=== PATIENT | male | born 1960 | race Caucasian/White ===

== ENCOUNTER → 2017-06-30 | Outpatient (CLI) | payer BC, MEDICARE ==
[2015-02-01 00:16] VITALS: BP 153/91
[~2017-06-30] MED LIST: CETI10TA22 PO; IBUP600T16 PO; LEVO75TA5 PO; METF500T4 PO; ONDA4TAB12 PO; ONDA4TAB7 PO; OXYC-328 PO
[2017-06-30 12:21] LABS: BASO # 0.1 x10^3/uL (0.0-0.2); BASO % 1 % (0-3); EOS # 0.1 x10^3/uL (0.0-0.7); EOS % 1 % (0-3); HEMATOCRIT 38.5 % (39.0-53.0); HEMOGLOBIN 12.8 g/dL (13.0-17.5); LYMPH # 1.1 x10^3/uL (1.0-4.8); LYMPH % 19 % (24-48); MEAN CORPUSCULAR HEMOGLOBIN 29 pg (25-35); MEAN CORPUSCULAR HGB CONC 33 g/dL (31-37); MEAN CORPUSCULAR VOLUME 88 fL (79-100); MONO # 0.3 x10^3/uL (0.0-1.1); MONO % 6 % (0-9); NEUT # 4.4 x10^3uL (1.8-7.7); NEUT % 73 % (31-73); PLATELET COUNT 174 x10^3/uL (140-400); RED CELL DISTRIBUTION WIDTH 14.5 % (11.5-14.5)
[2017-06-30 12:30] LABS: AMORPHOUS SEDIMENT,UR PRESENT /HPF; BACTERIA,URINE FEW /HPF (0-FEW); BILIRUBIN,URINE NEG (NEG); CLARITY,URINE HAZY; COLOR,URINE STRAW; GLUCOSE,URINE NEG (NEG); NITRITE,URINE NEG (NEG); RBC,URINE 0 /HPF (0-2); SQUAMOUS EPITHELIAL CELL,UR FEW /LPF; UROBILINOGEN,URINE 0.2 mg/dL (0.2 mg/dL); WBC,URINE OCC /HPF (0-4)
== END | disposition home or self-care (01) ==
LOC: LAB 10:55
PROVIDERS: ATTEND Anesthesiology Pain Medicine
DX: Z01.818 Encounter for other preprocedural examination (principal)
CPT/HCPCS: 36415; 81001; 85025; 87641

== ENCOUNTER → 2017-08-09 | Day surgery (SDC) | payer BC, MEDICARE ==
[2015-02-01 00:16] VITALS: BP 153/91
[~2017-08-09] MED LIST changes: +BACITRACIN 50,000 UNIT VIAL. ONE; +BUPIVACAINE MPF 0.5% 30 ML VIAL. ONE; +IOHEXOL 300 MG/ML 50 ML VIAL. ONE; +IV RINGERS SOLUTION,LACTATED 1,000 ML IV ONE; +LIDOCAINE 1% PF 30 ML VIAL. ONE; +LIDOCAINE 2% PF Vial for OR 5 ML VIAL. ONE; +MIDAZOLAM HCL PF 2 MG/2 ML VIAL. ONE; +PROPOFOL 20 ML IV ONE
[2017-08-09 11:17] LABS: BACTERIA,URINE 0 /HPF (0-FEW); BILIRUBIN,URINE NEG (NEG); CLARITY,URINE CLEAR; COLOR,URINE YELLOW; GLUCOSE,URINE NEG (NEG); NITRITE,URINE NEG (NEG); RBC,URINE 0 /HPF (0-2); UROBILINOGEN,URINE 0.2 mg/dL (0.2 mg/dL); WBC,URINE 0 /HPF (0-4)
== END | disposition home or self-care (01) ==
LOC: SURG 09:57
PROVIDERS: ATTEND Anesthesiology Pain Medicine
DX: M54.16 Radiculopathy, lumbar region (principal); Z88.6 Allergy status to analgesic agent; Z88.8 Allergy status to other drugs, medicaments and biological substances
CPT/HCPCS: 63650; 81001; 82947; J0690; J2001; J2250; J2704; J3010; J3490; J7120; Q9967

== ENCOUNTER → 2017-10-04 | Day surgery (SDC) | payer BC, MEDICARE ==
[2015-02-01 00:16] VITALS: BP 153/91
[2017-10-03 13:00] LABS: BASO # 0.1 x10^3/uL (0.0-0.2); BASO % 1 % (0-3); EOS # 0.1 x10^3/uL (0.0-0.7); EOS % 1 % (0-3); HEMATOCRIT 39.8 % (39.0-53.0); HEMOGLOBIN 13.6 g/dL (13.0-17.5); LYMPH # 1.1 x10^3/uL (1.0-4.8); LYMPH % 17 % (24-48); MEAN CORPUSCULAR HEMOGLOBIN 30 pg (25-35); MEAN CORPUSCULAR HGB CONC 34 g/dL (31-37); MEAN CORPUSCULAR VOLUME 88 fL (79-100); MONO # 0.4 x10^3/uL (0.0-1.1); MONO % 7 % (0-9); NEUT # 4.7 x10^3uL (1.8-7.7); NEUT % 74 % (31-73); PLATELET COUNT 230 x10^3/uL (140-400); RED BLOOD COUNT 4.51 x10^6/uL (4.30-5.70); RED CELL DISTRIBUTION WIDTH 13.6 % (11.5-14.5); WHITE BLOOD COUNT 6.4 x10^3/uL (4.0-11.0)
[2017-10-03 13:12] LABS: BACTERIA,URINE 0 /HPF (0-FEW); BILIRUBIN,URINE NEG (NEG); CLARITY,URINE CLEAR; COLOR,URINE YELLOW; GLUCOSE,URINE NEG (NEG); NITRITE,URINE NEG (NEG); RBC,URINE 0 /HPF (0-2); UROBILINOGEN,URINE 0.2 mg/dL (0.2 mg/dL); WBC,URINE RARE /HPF (0-4)
[~2017-10-04] MED LIST changes: -IOHEXOL 300 MG/ML 50 ML VIAL. ONE; -LIDOCAINE 2% PF Vial for OR 5 ML VIAL. ONE; -PROPOFOL 20 ML IV ONE; +fentaNYL PF 250 MCG/5 ML VIAL ONE
== END | disposition home or self-care (01) ==
LOC: SURG 13:23
PROVIDERS: ATTEND Anesthesiology Pain Medicine
DX: M96.1 Postlaminectomy syndrome, not elsewhere classified (principal); M54.16 Radiculopathy, lumbar region; E11.9 Type 2 diabetes mellitus without complications; E03.9 Hypothyroidism, unspecified; F41.9 Anxiety disorder, unspecified; F32.9 Major depressive disorder, single episode, unspecified; D64.9 Anemia, unspecified; Z87.442 Personal history of urinary calculi; Z87.440 Personal history of urinary (tract) infections; Z88.6 Allergy status to analgesic agent
CPT/HCPCS: 36415; 63685; 81001; 82947; 85025; 87641; J0690; J2001; J2250; J3010; J3490; J7120; L8686

== ENCOUNTER → 2017-10-18 | Outpatient (CLI) | payer BC, MEDICARE ==
[2015-02-01 00:16] VITALS: BP 153/91
[~2017-10-18] MED LIST changes: -BACITRACIN 50,000 UNIT VIAL. ONE; -BUPIVACAINE MPF 0.5% 30 ML VIAL. ONE; -IV RINGERS SOLUTION,LACTATED 1,000 ML IV ONE; -LIDOCAINE 1% PF 30 ML VIAL. ONE; -MIDAZOLAM HCL PF 2 MG/2 ML VIAL. ONE; -fentaNYL PF 250 MCG/5 ML VIAL ONE
== END | disposition home or self-care (01) ==
LOC: SURG 14:12
PROVIDERS: ATTEND Anesthesiology Pain Medicine
DX: Z48.02 Encounter for removal of sutures (principal); Z45.89 Encounter for adjustment and management of other implanted devices
CPT/HCPCS: 99214

== ENCOUNTER → 2018-09-26 | Outpatient (CLI) | payer BC, MEDICARE ==
[2015-02-01 00:16] VITALS: BP 153/91
[~2018-09-26] MED LIST changes: +METF500T16 PO; -METF500T4 PO; -OXYC-328 PO; +OXYC1TAB22 PO
--- NOTE | 2018-09-26 11:20 | RAD ---
Chest, 2 views, 09/26/2018: HISTORY: Cough for one week Comparison is made to a study from 12/06/2016. Spinal stimulator leads extend into the mid thoracic spinal canal. The heart size and pulmonary vascularity are normal. No pulmonary infiltrate is seen. There is no evidence of pleural fluid. Mild spurring is present in the spine. Widening of the left AC joint may be post traumatic or postsurgical. IMPRESSION: No acute cardiopulmonary abnormality is detected. Electronically signed by: Hardik Valdivia MD (09/26/2018 11:17 AM) [facility]
== END | disposition home or self-care (01) ==
LOC: PMG 10:33
PROVIDERS: ATTEND Physician Assistant Medical
DX: R05 Cough (principal); M46.04 Spinal enthesopathy, thoracic region
CPT/HCPCS: 71046

== ENCOUNTER → 2018-09-28 | Outpatient (CLI) | payer BC, MEDICARE ==
[2015-02-01 00:16] VITALS: BP 153/91
[~2018-09-28] MED LIST changes: +IOHEXOL 300 MG/ML 75 ML VIAL. IV ONE
[2018-09-28 15:12] LABS: CREATININE 1.4 mg/dL (0.7-1.3); GFR 52.4
--- NOTE | 2018-09-28 15:53 | RAD ---
CTA of the chest with contrast, 09/28/2018: HISTORY: Shortness of breath, previous pulmonary emboli Multidetector CT imaging was performed following an IV bolus injection of iodinated contrast material. Multiplanar reconstructions were produced including coronal MIP images. The central pulmonary arteries are well opacified and no filling defects are seen to suggest pulmonary emboli. The thoracic aorta is of normal caliber. Minimal coronary artery calcification is present. No mediastinal or hilar adenopathy is seen. There is minimal linear atelectasis or scarring laterally in the left base. There is minimal dependent atelectasis in the lungs. No pulmonary consolidation or mass is seen. There is a trace amount of bilateral pleural fluid. Spinal stimulator leads extend into the mid thoracic spinal canal. There are mild scattered degenerative changes in the spine. IMPRESSION: 1. No CT evidence of central pulmonary emboli. 2. Minimal coronary artery calcification. 3. Trace amount of bilateral pleural fluid. PQRS Compliance Statement: One or more of the following individualized dose reduction techniques were utilized for this examination: 1. Automated exposure control 2. Adjustment of the mA and/or kV according to patient size 3. Use of iterative reconstruction technique Electronically signed by: Hardik Valdivia MD (09/28/2018 3:49 PM) [facility]
== END | disposition home or self-care (01) ==
LOC: PMG 14:26
PROVIDERS: ATTEND Physician Assistant Medical
DX: I25.10 Atherosclerotic heart disease of native coronary artery without angina pectoris (principal); R05 Cough; Z86.711 Personal history of pulmonary embolism
CPT/HCPCS: 36415; 71275; 82565; Q9967

== ENCOUNTER → 2018-12-26 | Outpatient (CLI) | payer BC, MEDICARE ==
[2015-02-01 00:16] VITALS: BP 153/91
[~2018-12-26] MED LIST changes: -IOHEXOL 300 MG/ML 75 ML VIAL. IV ONE
--- NOTE | 2018-12-26 10:02 | RAD ---
EXAM: Neck sonogram. HISTORY: Palpable lump. TECHNIQUE: Sonographic imaging of the neck at the site of palpable concern was performed. COMPARISON: None. FINDINGS: There is no suspicious sonographic finding within the posterior midline neck at the site of concern. IMPRESSION: No sonographic correlate for a reported palpable abnormality within the midline posterior neck. Electronically signed by: Fabiola Lennon MD (12/26/2018 9:59 AM) [place] [id number]
== END | disposition home or self-care (01) ==
LOC: US 08:22
PROVIDERS: ATTEND Physician Assistant
DX: R22.1 Localized swelling, mass and lump, neck (principal)
CPT/HCPCS: 76536

== ENCOUNTER → 2019-02-21 | Outpatient (CLI) | payer BC, MEDICARE ==
[2015-02-01 00:16] VITALS: BP 153/91
--- NOTE | 2019-02-21 17:11 | RAD ---
Examination: THYROID ULTRASOUND History: THYROID NODULE ON EXAM Comparison/Correlation: CTA of the chest 09/28/2018 Findings: Thyroid ultrasound exam was performed. Right thyroid lobe measures 2.8 cm x 1.5 cm x 1.3 cm. Left thyroid lobe measures 3.1 cm x 1.3 cm x 1.2 cm. Thyroid isthmus measures up to 0.2 cm anteroposterior. There is no thyroid nodule or mass. Normal echotexture of the thyroid gland is present. Normal flow on color Doppler imaging is present. No suspicious findings in soft tissues immediately about the thyroid gland. Impression: Normal thyroid ultrasound exam. Electronically signed by: Ino Carlos MD (02/21/2019 5:08 PM) [facility]
== END | disposition home or self-care (01) ==
LOC: US 12:29
PROVIDERS: ATTEND Registered Nurse
DX: E04.1 Nontoxic single thyroid nodule (principal)
CPT/HCPCS: 76536

== ENCOUNTER → 2019-08-08 | Outpatient (CLI) | payer BC, MEDICARE ==
[2015-02-01 00:16] VITALS: BP 153/91
--- NOTE | 2019-08-08 12:45 | RAD ---
2 view right elbow study Clinical indications: Right elbow pain FINDINGS: No joint effusion is seen. No acute fracture or dislocation or lytic process is evident. No arthritic change is evident. IMPRESSION: No significant osseous abnormality. Electronically signed by: Luis A Guillen MD (08/08/2019 12:42 PM) [id number]
== END | disposition home or self-care (01) ==
LOC: RAD 10:48
DX: M25.521 Pain in right elbow (principal)
CPT/HCPCS: 73070

== ENCOUNTER → 2019-12-13 | Outpatient (CLI) | payer BC, MEDICARE ==
[2015-02-01 00:16] VITALS: BP 153/91
[~2019-12-13] MED LIST changes: -CETI10TA22 PO; +CETI10TA24 PO
--- NOTE | 2019-12-13 15:25 | RAD ---
EXAM: CT Abdomen and Pelvis without IV contrast INDICATION: Hematuria, flank pain and history of kidney stones TECHNIQUE: Multi-detector row CT images were acquired from the lung bases through the abdomen and pelvis without the use of IV contrast. Sagittal and coronal images were acquired from the transaxial data. All CT scans performed at this facility utilize dose optimization techniques as appropriate to the exam, including the following: Automated exposure control and adjustment of the mA and/or KV according to patient size (this includes techniques or standardized protocols for targeted exams where dose is indication/reason for exam). ORAL CONTRAST: None COMPARISON: None FINDINGS: The absence of IV contrast limits evaluation of soft tissue pathology. LOWER CHEST: Unremarkable LIVER: Unremarkable BILIARY SYSTEM: Gallbladder is surgically absent.. Bile ducts are not dilated. PANCREAS: Unremarkable SPLEEN: Unremarkable ADRENALS: Unremarkable KIDNEYS & URETERS: Superior pole 1.1 cm nonobstructing stone is present along with tiny, 1 to 2 mm punctate stones in the inferior pole right kidney. No stones in the ureters and no hydronephrosis or hydroureter. Minimal bilateral inferior pole perirenal stranding, nonspecific. No radiopaque stones in the left kidney or ureter. BLADDER: Partially distended. Otherwise unremarkable. REPRODUCTIVE ORGANS: Unremarkable GASTROINTESTINAL: The stomach, small bowel, and colon are within normal limits. The configuration of the proximal stomach is suggestive of possible prior fundoplication.. The appendix is normal. MESENTERY/PERITONEUM/RETROPERITONEUM: Unremarkable VASCULAR: Unremarkable LYMPH NODES: No adenopathy OSSEOUS & SOFT TISSUES: No aggressive appearing osseous lesions. Sclerotic focus in the right pubic symphysis and the left sacral alar suggestive of bone islands. Neurostimulator in the posterior lower thoracic spinal canal is present with electrodes entering from the left T12-L1 entry. IMPRESSION: Right nephrolithiasis without CT findings of urinary tract obstruction. Electronically signed by: Teri Sanchez MD (12/13/2019 3:22 PM) [id number]
== END | disposition home or self-care (01) ==
LOC: CT 14:56
PROVIDERS: ATTEND Registered Nurse
DX: N20.0 Calculus of kidney (principal); Z87.442 Personal history of urinary calculi
CPT/HCPCS: 74176

== ENCOUNTER 2020-04-12 20:37 | Emergency (ER) | payer MEDICARE, BC ==
[~2020-04-12] VITALS: Ht 162.6 cm; Wt 84.0 kg
--- NOTE | 2020-04-12 20:42 | PHYS DOC ---
Past History Past Medical History: Anxiety, Arthritis, Depression, Fibromyalgia, Gallstones, GERD, High Cholesterol, Hypothyroid, Kidney Stones, Other Past Surgical History: Appendectomy, Cholecystectomy, Tonsillectomy, Other Alcohol Use: None Drug Use: None General Adult HPI: HPI: ".. I got this kidney stone that is stuck.. It just the pain is so bad to night .. I can't stand it.. ".. " I to get a laser tx. here in next week with Dr. Thurman... ".. They been following it.... It just that I so miserable to night.. It is not my lst stone... I ve had at least 50 some stones..... and usually I dont have to go to the hospital... I am taking Flomax.. Zofran.. it just really hurting tonight... " " Usually if I get a shot of something.. I get over the times I get bad pain..." Patient is a 59 year old male who presents with above hx and complaints of Rt f;lank back which he describes as his renal colic from a stuck renal stone. The patient is seeing urology Dr Thurman. Patient is on Flomax and has been taking Tylenol and ibuprofen for pain. Patient also has been taking Zofran for nausea. Patient is taking Flomax twice a day. Patient denies any fever or chills. Patient denies any recent travel outside the [place] area. Patient denies any immunosuppression. Patient does have a past history of anxiety, GERD, reflux, Gertrudis esophagitis, slow gastric transit time, depression, elevated cholesterol, hypothyroidism and a lengthy history of childhood illnesses. Hx of appendectomy, cholecystectomy, back surgery, and nerve stimulator for chronic back pain. Pt. follows with [facility] for care. Patient states he is not on any antibiotics currently. Has planned laser tx. with stent by Dr. Thurman. Review of Systems: Review of Systems: Constitutional: Denies fever or chills Eyes: Denies change in visual acuity HENT: Denies nasal congestion or sore throat Respiratory: Denies cough or shortness of breath Cardiovascular: Denies chest pain or edema GI: Denies abdominal pain, , vomiting, bloody stools or diarrhea . Complaints of nausea : Denies dysuria . Complaints of hematuria Musculoskeletal: Complains of Rt. flank back pain . Hx of chronic back and joint pain Integument: Denies rash Neurologic: Denies headache, focal weakness or sensory changes Endocrine: Denies polyuria or polydipsia Lymphatic: Denies swollen glands Psychiatric: Denies depression or anxiety Heart Score: Risk Factors: Risk Factors: DM, Current or recent (<one month) smoker, HTN, HLP, family history of CAD, obesity. Risk Scores: Score 0 - 3: 2.5% MACE over next 6 weeks - Discharge Home Score 4 - 6: 20.3% MACE over next 6 weeks - Admit for Clinical Observation Score 7 - 10: 72.7% MACE over next 6 weeks - Early Invasive Strategies Family History: Family History: Noncontributory to presentation Current Medications: Current Meds: See nursing for home meds Allergies: Allergies: Allergies Coded Allergies Type Severity Reaction Last Updated Verified codeine Allergy Intermediate 02/01/15 No droperidol Adverse Reaction Intermediate 01/02/15 Yes morphine Adverse Reaction Intermediate 01/02/15 Yes Physical Exam: PE: Constitutional: in acute distress, non-toxic appearance. [] HENT: Normocephalic, atraumatic, bilateral external ears normal, oropharynx moist, no oral exudates, nose normal. [] Eyes: PERRLA, EOMI, conjunctiva normal, no discharge. Glasses Neck: Normal range of motion, no tenderness, supple, no stridor. [] Cardiovascular:Heart rate regular rhythm, no murmur [] Lungs & Thorax: Bilateral breath sounds equal at apexes with few scattered wheezes on auscultation [] Abdomen: Bowel sounds decreased, soft, Rt. flank tenderness, no masses, no pulsatile masses. [] Old surgery scars. Distended. Mild rebound to right flank. Skin: Warm, dry, no erythema, no rash. [] Back: No tenderness, Rt. CVA tenderness. [] Spinal stimulator on the left. Old scars. Extremities: No tenderness, no cyanosis, no clubbing, ROM intact, no edema. [] Old surgery scars. No psoas sign. Neurologic: Alert and oriented X 3, normal motor function, normal sensory function, no focal deficits noted. [] Psychologic: Affect anxious , judgement normal, mood normal. [] EKG: EKG: [] Radiology/Procedures: Radiology/Procedures: [][address] [id number] IMAGING REPORT Signed PATIENT: BASSAM CRUZ ACCOUNT: [id number] : 1960 LOCATION: ER AGE: 59 SEX: M EXAM STATUS: REG ER ORD. PHYSICIAN: ROBERTO REINA MD REASON: kidneystone Rt. PROCEDURE: ACUTE ABDOMEN SERIES Exam: Acute abdominal series INDICATION: Kidney stones TECHNIQUE: Frontal view of the chest with upright and supine views of the abdomen Comparisons: CT 12/13/2019 FINDINGS: The cardiomediastinal silhouette and pulmonary vessels are within normal limits. The lung and pleural spaces are clear. Air and stool are noted throughout the colon to level the rectum in a nonobstructive bowel gas pattern. No suspicious masses or calcifications. Visualized osseous structures are unremarkable. IMPRESSION: 1. No acute cardiopulmonary process. 2. Nonobstructive bowel gas pattern. Electronically signed by: Yobani Ellis MD (04/12/2020 10:00 PM) [id number] DICTATED AND SIGNED BY: YOBANI ELLIS MD DATE: 04/12/202199 CC: ROBERTO REINA MD; ANNAMARIE DUBOIS ~ Course & Med Decision Making: Course & Med Decision Making Pertinent Labs and Imaging studies reviewed. (See chart for details) Patient declining CT of abdomen at this time. Patient declines transfer to another hospital for possible admission and urology consult tonight Pt. requesting discharge. Pt. to stay on clear fluid diet. No solids or milk products. Push fluids. Take Zofran 8 up 4 times a day for active vomiting. Tylenol and ibuprofen for pain. Continue Flomax as previously instructed. For marked pain may take Vicoprofen up to 4 times a day. Keep follow-up with -urology. If he develops intractable pain again tonight or repeat episode of intractable pain will need to follow-up at a hospital that has on- call urology. Follow-up with primary care. Impression: 1. Renal Colic 2. History of kidney stones 3. History of chronic pain 4. History of chronic back pain- Has Stimulator 5. Mild Anemia Hgb.12.0 6. Diabetes glucose 124 7. Mild elevation creatinine 1.5 8. Constipation [] Dragon Disclaimer: Dragon Disclaimer: This electronic medical record was generated, in whole or in part, using a voice recognition dictation system. Departure Departure: Disposition: 01 HOME/RESIDENCE PRIOR TO ADM Condition: STABLE Referrals: ANNAMARIE DUBOIS (PCP) Scripts Ondansetron Hcl (ZOFRAN) 8 Mg Tablet 8 MG PO QIDPRN PRN for active vomiting, #30 BOTTLE Prov: ROBERTO REINA MD 04/12/20 Hydrocodone/Ibuprofen (HYDROCODONE-IBUPROFEN 7.5-200 ) 1 Each Tablet 1 TAB PO PRN Q6HRS PRN for PAIN, #30 TAB 0 Refills Prov: ROBERTO REINA MD 04/12/20 Justification of Admission: Justification of Admission: Justification of Admission Dx: N/A Dragon Disclaimer This chart was dictated in whole or in part using Voice Recognition software in a busy, high-work load, and often noisy Emergency Department environment. It may contain unintended and wholly unrecognized errors or omissions. Dragon Disclaimer This chart was dictated in whole or in part using Voice Recognition software in a busy, high-work load, and often noisy Emergency Department environment. It may contain unintended and wholly unrecognized errors or omissions. ROBERTO REINA MD Apr 12, 2020 20:42
[2020-04-12 20:45] VITALS: BP 162/103
[2020-04-12] MEDS ORDERED: IV RINGERS SOLUTION,LACTATED 1,000 ML IV SCH (21:06)
[2020-04-12] MEDS ORDERED: ONDANSETRON PF 4 MG/2 ML VIAL. IVP ONE (21:15)
[2020-04-12] MEDS ORDERED: KETOROLAC 30 MG/ML VIAL. IVP ONE (21:15)
[2020-04-12] MEDS ORDERED: FAMOTIDINE 20 MG/2 ML VIAL IVP ONE (21:15)
[2020-04-12 21:52] LABS: BASO # 0.1 x10^3/uL (0.0-0.2); BASO % 1 % (0-3); EOS # 0.2 x10^3/uL (0.0-0.7); EOS % 5 % (0-3); HEMATOCRIT 35.8 % (39.0-53.0); LYMPH % 19 % (24-48); MEAN CORPUSCULAR HEMOGLOBIN 29 pg (25-35); MEAN CORPUSCULAR HGB CONC 33 g/dL (31-37); MEAN CORPUSCULAR VOLUME 86 fL (79-100); MONO # 0.3 x10^3/uL (0.0-1.1); MONO % 7 % (0-9); NEUT # 3.6 x10^3uL (1.8-7.7); NEUT % 69 % (31-73); PLATELET COUNT 189 x10^3/uL (140-400); RED BLOOD COUNT 4.14 x10^6/uL (4.30-5.70); RED CELL DISTRIBUTION WIDTH 15.3 % (11.5-14.5); WHITE BLOOD COUNT 5.3 x10^3/uL (4.0-11.0)
--- NOTE | 2020-04-12 22:03 | RAD ---
Exam: Acute abdominal series INDICATION: Kidney stones TECHNIQUE: Frontal view of the chest with upright and supine views of the abdomen Comparisons: CT 12/13/2019 FINDINGS: The cardiomediastinal silhouette and pulmonary vessels are within normal limits. The lung and pleural spaces are clear. Air and stool are noted throughout the colon to level the rectum in a nonobstructive bowel gas pattern. No suspicious masses or calcifications. Visualized osseous structures are unremarkable. IMPRESSION: 1. No acute cardiopulmonary process. 2. Nonobstructive bowel gas pattern. Electronically signed by: Yobani Garrison MD (04/12/2020 10:00 PM) [id number]
[2020-04-12 22:05] LABS: POTASSIUM 4.2 mmol/L (3.5-5.1)
[2020-04-12 22:18] LABS: CALCIUM 8.8 mg/dL (8.5-10.1); CREATININE 1.5 mg/dL (0.7-1.3); GFR 48.1
[2020-04-12 22:24] LABS: ALBUMIN 4.1 g/dL (3.4-5.0); DIRECT BILIRUBIN 0.1 mg/dL (0.0-0.2); TOTAL BILIRUBIN 0.1 mg/dL (0.2-1.0); TOTAL PROTEIN 6.9 g/dL (6.4-8.2)
[2020-04-12] MEDS ORDERED: fentaNYL 50MCG/HR 1 PATCH PATCH TD ONE (22:30)
[2020-04-12 22:49] LABS: BARBITURATES NEG (NEG); BENZODIAZEPINES POS (NEG); CANNABINOIDS NEG (NEG); COCAINE NEG (NEG); METHADONE NEG (NEG); OPIATES NEG (NEG); PHENCYCLIDINE NEG (NEG)
[2020-04-12 22:50] LABS: AMPHETAMINE/METHAMPHETAMINE NEG (NEG)
[2020-04-12 22:51] LABS: CLARITY,URINE CLEAR; COLOR,URINE YELLOW
[2020-04-12 22:52] LABS: BACTERIA,URINE FEW /HPF (0-FEW); BILIRUBIN,URINE NEG (NEG); GLUCOSE,URINE NEG (NEG); NITRITE,URINE NEG (NEG); RBC,URINE 20-40 /HPF (0-2); SQUAMOUS EPITHELIAL CELL,UR OCC /LPF; UROBILINOGEN,URINE 0.2 mg/dL (0.2 mg/dL)
[2020-04-12] MEDS ORDERED: MAGNESIUM HYDROXIDE 2,400 MG/30 ML ORAL.SUSP. PO ONE (23:30)
[2020-04-12] MEDS ORDERED: HYDR-1179 PO (23:46)
[2020-04-12] MEDS ORDERED: ONDA8TAB9 PO (23:46)
[2020-04-15] MEDS ORDERED: fentaNYL 50MCG/HR 1 PATCH PATCH TD SCH (09:00)
== END 2020-04-13 | disposition home or self-care (01) ==
LOC: ER 20:37
DX: N23 Unspecified renal colic (principal); G89.29 Other chronic pain; D64.9 Anemia, unspecified; E11.9 Type 2 diabetes mellitus without complications; R79.89 Other specified abnormal findings of blood chemistry; K59.00 Constipation, unspecified; M19.90 Unspecified osteoarthritis, unspecified site; M79.7 Fibromyalgia; K21.9 Gastro-esophageal reflux disease without esophagitis; E78.00 Pure hypercholesterolemia, unspecified; E03.9 Hypothyroidism, unspecified; F41.9 Anxiety disorder, unspecified; Z87.442 Personal history of urinary calculi; Z88.5 Allergy status to narcotic agent; Z88.8 Allergy status to other drugs, medicaments and biological substances
CPT/HCPCS: 36415; 74022; 80048; 80076; 80307; 81001; 82150; 82550; 83690; 84484; 85025; 85610; 85730; 87086; 96374; 96375; 96376; 99284; J1885; J2405; J3010; J3490; J7120; 96361

== ENCOUNTER 2020-04-21 23:04 | Emergency (ER) | payer BC, MEDICARE ==
[~2020-04-21] VITALS: Ht 162.6 cm; Wt 84.0 kg
[~2020-04-21 23:04] MED LIST changes: +HYDR-1179 PO; +ONDA8TAB9 PO
[2020-04-21 23:12] VITALS: BP 149/90
[2020-04-21] MEDS ORDERED: TAMSULOSIN 0.4 MG CAP.ER.24H. PO ONE (23:45)
[2020-04-21] MEDS ORDERED: KETOROLAC 30 MG/ML VIAL. IVP ONE (23:45)
--- NOTE | 2020-04-21 23:58 | RAD ---
Examination: CT of the abdomen pelvis without contrast HISTORY: History of flank pain COMPARISON: 12/13/2011 TECHNIQUE: Axial CT images of the abdomen pelvis were performed without contrast. Coronal and sagittal reformats are performed Exposure: One or more of the following individualized dose reduction techniques were utilized for this examination: 1. Automated exposure control 2. Adjustment of the mA and/or kV according to patient size 3. Use of iterative reconstruction technique FINDINGS: The bibasilar lungs are clear. No evidence of free air identified in the abdomen. The evaluation of the solid organs is limited due to lack of IV contrast. The evaluation of bowel is limited due to lack of oral contrast. The visualized noncontrasted liver, spleen, adrenals grossly appears unremarkable. Cholecystectomy changes identified. The stomach is mildly distended. Multiple fluid distended small bowel loops identified in the lower abdomen. Feces and gas identified in the colon. Right-sided ureteral stent identified. Punctate intrarenal collecting system calculi identified in the right kidney with largest measuring 8 mm. Urinary bladder is mildly distended. Moderate degenerative disease lumbar spine. Spinal stimulator is identified. IMPRESSION: 1. Distended bowel loops identified in the lower abdomen, nonspecific could be ileus or partial small bowel obstruction. 2. Punctate intrarenal collecting system calculi right kidney. Right ureteral stent is identified. Electronically signed by: Gt Chandra MD (04/21/2020 11:55 PM) [id number]
[2020-04-22 00:03] LABS: BASO # 0.1 x10^3/uL (0.0-0.2); BASO % 1 % (0-3); EOS # 0.3 x10^3/uL (0.0-0.7); EOS % 7 % (0-3); HEMATOCRIT 33.2 % (39.0-53.0); HEMOGLOBIN 10.7 g/dL (13.0-17.5); LYMPH # 0.9 x10^3/uL (1.0-4.8); LYMPH % 20 % (24-48); MEAN CORPUSCULAR HEMOGLOBIN 28 pg (25-35); MEAN CORPUSCULAR HGB CONC 32 g/dL (31-37); MEAN CORPUSCULAR VOLUME 86 fL (79-100); MONO # 0.4 x10^3/uL (0.0-1.1); MONO % 8 % (0-9); NEUT % 64 % (31-73); PLATELET COUNT 203 x10^3/uL (140-400); RED BLOOD COUNT 3.87 x10^6/uL (4.30-5.70); RED CELL DISTRIBUTION WIDTH 15.2 % (11.5-14.5); WHITE BLOOD COUNT 4.8 x10^3/uL (4.0-11.0)
[2020-04-22 00:08] LABS: CALCIUM 8.9 mg/dL (8.5-10.1); CREATININE 2.1 mg/dL (0.7-1.3); GFR 32.6; POTASSIUM 4.2 mmol/L (3.5-5.1)
[2020-04-22 00:14] LABS: ALBUMIN 3.5 g/dL (3.4-5.0); TOTAL BILIRUBIN 0.2 mg/dL (0.2-1.0)
[2020-04-22 00:18] LABS: BILIRUBIN,URINE NEG (NEG); CLARITY,URINE CLOUDY; COLOR,URINE RED; GLUCOSE,URINE NEG (NEG); NITRITE,URINE POS (NEG); UROBILINOGEN,URINE 0.2 mg/dL (0.2 mg/dL)
[2020-04-22 00:19] LABS: BACTERIA,URINE FEW /HPF (0-FEW); RBC,URINE TNTC /HPF (0-2); SQUAMOUS EPITHELIAL CELL,UR OCC /LPF
[2020-04-22] MEDS ORDERED: cefTRIAXone SODIUM 1 GM VIAL ONE (00:27)
[2020-04-22] MEDS ORDERED: IV NORMAL SALINE 50ML 50 ML ONE (00:27)
--- NOTE | 2020-04-22 00:53 | PHYS DOC ---
Past History Past Medical History: Anxiety, Arthritis, Depression, Fibromyalgia, Gallstones, GERD, High Cholesterol, Hypothyroid, Kidney Stones, Other Additional Past Medical Histor: gastric ulcers Past Surgical History: Appendectomy, Cholecystectomy, Tonsillectomy Alcohol Use: None Drug Use: None General Adult EDM: Chief Complaint: ABDOMINAL DISTENTION HPI: HPI: Patient is a 59-year-old male who presents to ER for evaluation of abdominal distention, abdominal pain, difficult urination. Patient said he had a kidney stone on the right side, had ureteral stent placed last . Patient said since the operation he has not being able to have a bowel movement. Patient said today his belly become more distended, had more pain in the right flank, he has the urge to urinate but very little coming out. Patient also noted blood in his urine. He is Xarelto due to history of blood clot in his lung. Patient denies any fever, no cough. Patient had ureteral stent placed by Dr. Contreras Tanner in [place], [place] last . Patient denies being exposed to anybody who tested positive for COVID-19 Review of Systems: Review of Systems: Constitutional: Denies fever or chills Eyes: Denies change in visual acuity HENT: Denies nasal congestion or sore throat Respiratory: Denies cough or shortness of breath Cardiovascular: Denies chest pain or edema GI: positive for abdominal pain, abdominal distension, nausea : positive for hematuria, anuria. Musculoskeletal: Denies back pain or joint pain Integument: Denies rash Neurologic: Denies headache, focal weakness or sensory changes Endocrine: Denies polyuria or polydipsia Lymphatic: Denies swollen glands Psychiatric: Denies depression or anxiety Heart Score: Risk Factors: Risk Factors: DM, Current or recent (<one month) smoker, HTN, HLP, family history of CAD, obesity. Risk Scores: Score 0 - 3: 2.5% MACE over next 6 weeks - Discharge Home Score 4 - 6: 20.3% MACE over next 6 weeks - Admit for Clinical Observation Score 7 - 10: 72.7% MACE over next 6 weeks - Early Invasive Strategies Current Medications: Current Meds: Current Medications Medications (Trade) Dose Ordered Sig/Zarina Start Time Stop Time Status Last Admin Dose Admin Ceftriaxone Sodium 1 gm/ Sodium Chloride 50 ml @ 100 mls/hr 1X ONCE 04/22/20 01:00 04/22/20 01:29 04/22/20 00:32 100 MLS/HR Ceftriaxone Sodium (Rocephin) 1 gm STK-MED ONCE 04/22/20 00:27 04/22/20 00:27 DC Fentanyl Citrate (Fentanyl 2ml Vial) 50 mcg 1X ONCE 04/21/20 23:45 04/21/20 23:46 DC 04/21/20 23:48 50 MCG Ketorolac Tromethamine (Toradol 30mg Vial) 30 mg 1X ONCE 04/21/20 23:45 04/21/20 23:46 DC 04/21/20 23:48 30 MG Sodium Chloride 50 ml @ As Directed STK-MED ONCE 04/22/20 00:27 04/22/20 00:27 DC Tamsulosin HCl (Flomax) 0.4 mg 1X ONCE 04/21/20 23:45 04/21/20 23:46 DC 04/21/20 23:48 0.4 MG Allergies: Allergies: Allergies Coded Allergies Type Severity Reaction Last Updated Verified codeine Allergy Intermediate 02/01/15 No droperidol Adverse Reaction Intermediate 01/02/15 Yes morphine Adverse Reaction Intermediate 01/02/15 Yes Physical Exam: PE: Constitutional: Well developed, well nourished, no acute distress, non-toxic appearance. [] HENT: Normocephalic, atraumatic, bilateral external ears normal, oropharynx moist, no oral exudates, nose normal. [] Eyes: PERRLA, EOMI, conjunctiva normal, no discharge. [] Neck: Normal range of motion, no tenderness, supple, no stridor. [] Cardiovascular:Heart rate regular rhythm, no murmur [] Lungs & Thorax: Bilateral breath sounds clear to auscultation [] Abdomen: abdomen is moderately distented, hyperactive bowel sound, right CVA tenderness to palpation. Skin: Warm, dry, no erythema, no rash. [] Back: No tenderness, Right CVA tenderness to palpation. Extremities: No tenderness, no cyanosis, no clubbing, ROM intact, no edema. [] Neurologic: Alert and oriented X 3, normal motor function, normal sensory function, no focal deficits noted. [] Psychologic: Affect normal, judgement normal, mood normal. [] Current Patient Data: Labs: Laboratory Tests Test 04/21/20 23:44 04/21/20 23:50 White Blood Count 4.8 x10^3/uL (4.0-11.0) Red Blood Count 3.87 x10^6/uL (4.30-5.70) L Hemoglobin 10.7 g/dL (13.0-17.5) L Hematocrit 33.2 % (39.0-53.0) L Mean Corpuscular Volume 86 fL (79-100) Mean Corpuscular Hemoglobin 28 pg (25-35) Mean Corpuscular Hemoglobin Concent 32 g/dL (31-37) Red Cell Distribution Width 15.2 % (11.5-14.5) H Platelet Count 203 x10^3/uL (140-400) Neutrophils (%) (Auto) 64 % (31-73) Lymphocytes (%) (Auto) 20 % (24-48) L Monocytes (%) (Auto) 8 % (0-9) Eosinophils (%) (Auto) 7 % (0-3) H Basophils (%) (Auto) 1 % (0-3) Neutrophils # (Auto) 3.0 x10^3uL (1.8-7.7) Lymphocytes # (Auto) 0.9 x10^3/uL (1.0-4.8) L Monocytes # (Auto) 0.4 x10^3/uL (0.0-1.1) Eosinophils # (Auto) 0.3 x10^3/uL (0.0-0.7) Basophils # (Auto) 0.1 x10^3/uL (0.0-0.2) Prothrombin Time 14.0 SEC (9.4-11.4) H Prothrombin Time INR 1.4 (0.9-1.1) H Activated Partial Thromboplast Time 48 SEC (23-33) H Sodium Level 138 mmol/L (136-145) Potassium Level 4.2 mmol/L (3.5-5.1) Chloride Level 105 mmol/L (98-107) Carbon Dioxide Level 22 mmol/L (21-32) Anion Gap 11 (6-14) Blood Urea Nitrogen 21 mg/dL (8-26) Creatinine 2.1 mg/dL (0.7-1.3) H Estimated GFR (Cockcroft-Gault) 32.6 BUN/Creatinine Ratio 10 (6-20) Glucose Level 143 mg/dL (70-99) H Calcium Level 8.9 mg/dL (8.5-10.1) Total Bilirubin 0.2 mg/dL (0.2-1.0) Aspartate Amino Transferase (AST) 25 U/L (15-37) Alanine Aminotransferase (ALT) 39 U/L (16-63) Alkaline Phosphatase 104 U/L (46-116) Total Protein 7.0 g/dL (6.4-8.2) Albumin 3.5 g/dL (3.4-5.0) Albumin/Globulin Ratio 1.0 (1.0-1.7) Lipase 39 U/L (73-393) L Urine Collection Type Unknown Urine Color Red Urine Clarity Cloudy Urine pH 6.0 Urine Specific [place] 1.020 Urine Protein >100 mg/dl (NEG-TRACE) Urine Glucose (UA) Neg mg/dL (NEG) Urine Ketones (Stick) Neg mg/dL (NEG) Urine Blood Large (NEG) Urine Nitrite Pos (NEG) Urine Bilirubin Neg (NEG) Urine Urobilinogen Dipstick 0.2 mg/dL (0.2 mg/dL) Urine Leukocyte Esterase Small (NEG) Urine RBC Tntc /HPF (0-2) Urine WBC 5-10 /HPF (0-4) Urine Squamous Epithelial Cells Occ /LPF Urine Bacteria Few /HPF (0-FEW) Vital Signs: Vital Signs Date Time Temp Pulse Resp B/P (MAP) Pulse Ox O2 Delivery O2 Flow Rate FiO2 04/21/20 23:48 Room Air 04/21/20 23:12 98.6 93 18 149/90 (109) 96 EKG: EKG: [] Radiology/Procedures: Radiology/Procedures: [][address] [id number] IMAGING REPORT Signed PATIENT: BASSAM CRUZ ACCOUNT: [id number] : 1960 LOCATION: ER AGE: 59 SEX: M EXAM STATUS: REG ER ORD. PHYSICIAN: AUDIE RENEE DO REASON: Abdomen and FLANK PAIN, RECENT URETERAL STENTS PLACED PROCEDURE: CT ABDOMEN PELVIS WO CONTRAST Examination: CT of the abdomen pelvis without contrast HISTORY: History of flank pain COMPARISON: 12/13/2011 TECHNIQUE: Axial CT images of the abdomen pelvis were performed without contrast. Coronal and sagittal reformats are performed Exposure: One or more of the following individualized dose reduction techniques were utilized for this examination: 1. Automated exposure control 2. Adjustment of the mA and/or kV according to patient size 3. Use of iterative reconstruction technique FINDINGS: The bibasilar lungs are clear. No evidence of free air identified in the abdomen. The evaluation of the solid organs is limited due to lack of IV contrast. The evaluation of bowel is limited due to lack of oral contrast. The visualized noncontrasted liver, spleen, adrenals grossly appears unremarkable. Cholecystectomy changes identified. The stomach is mildly distended. Multiple fluid distended small bowel loops identified in the lower abdomen. Feces and gas identified in the colon. Right-sided ureteral stent identified. Punctate intrarenal collecting system calculi identified in the right kidney with largest measuring 8 mm. Urinary bladder is mildly distended. Moderate degenerative disease lumbar spine. Spinal stimulator is identified. IMPRESSION: 1. Distended bowel loops identified in the lower abdomen, nonspecific could be ileus or partial small bowel obstruction. 2. Punctate intrarenal collecting system calculi right kidney. Right ureteral stent is identified. Electronically signed by: Gt Chandra MD (04/21/2020 11:55 PM) [id number] DICTATED AND SIGNED BY: GT CHANDRA MD DATE: 04/21/20 2355 CC: AUDIE RENEE DO; ANNAMARIE DUBOIS ~ Course & Med Decision Making: Course & Med Decision Making Pertinent Labs and Imaging studies reviewed. (See chart for details) Patient is a 59-year-old male who was found to have acute renal insufficiency due to recent renal stent placement, bowel obstruction and urinary tract infection. He will need to be admitted to hospital for urology and general surgery evaluation. The services are not available at this hospital therefore patient need to be transferred to another higher level of care. Patient requested to be transferred to [facility]. [place] Disclaimer: Slime Disclaimer: This electronic medical record was generated, in whole or in part, using a voice recognition dictation system. Departure Departure: Impression: Primary Impression: Bowel obstruction Additional Impressions: Urinary tract infection Acute renal insufficiency Disposition: 02 XFER [facility] (Transferred to [facility], accepted by Dr. Aleks Osuna) Condition: STABLE Referrals: ANNAMARIE DUBOIS (PCP) Justification of Admission: Justification of Admission: Justification of Admission Dx: N/A AUDIE RENEE DO Apr 22, 2020 00:53
== END 2020-04-22 01:51 | disposition short-term general hospital (02) ==
LOC: ER 23:04
DX: K56.609 Unspecified intestinal obstruction, unspecified as to partial versus complete obstruction (principal); N39.0 Urinary tract infection, site not specified; N28.9 Disorder of kidney and ureter, unspecified; K21.9 Gastro-esophageal reflux disease without esophagitis; E78.00 Pure hypercholesterolemia, unspecified; E03.9 Hypothyroidism, unspecified; Z87.442 Personal history of urinary calculi; Z90.89 Acquired absence of other organs; Z90.49 Acquired absence of other specified parts of digestive tract; Z88.5 Allergy status to narcotic agent; Z88.8 Allergy status to other drugs, medicaments and biological substances
CPT/HCPCS: 36415; 74176; 80053; 81001; 83690; 85025; 85610; 85730; 87086; 96365; 96375; 96376; 99285; J0696; J1885; J3010

== ENCOUNTER → 2020-05-18 | Outpatient (CLI) | payer BC, MEDICARE ==
[2020-04-21 23:12] VITALS: BP 149/90
[~2020-05-18] MED LIST changes: +ALPR1TAB2 PO; +BUPR150T15 PO; -CETI10TA24 PO; +CETI10TA74 PO; +GABA600T7 PO; +LEVO50TA5 PO; +MELO15TA23 PO; +PRAZ1CAP2 PO; +QUET200T4 PO; +RIVA10TA PO
== END | disposition home or self-care (01) ==
LOC: LAB 08:53
PROVIDERS: ATTEND Urology
DX: Z01.818 Encounter for other preprocedural examination (principal); Z11.59 Encounter for screening for other viral diseases; N20.0 Calculus of kidney
CPT/HCPCS: 36415; U0003

== ENCOUNTER → 2020-06-01 | Outpatient (CLI) | payer BC, MEDICARE ==
[~2020-06-01] MED LIST changes: -ALPR1TAB2 PO; -BUPR150T15 PO; +CETI10TA24 PO; -CETI10TA74 PO; -GABA600T7 PO; -LEVO50TA5 PO; -MELO15TA23 PO; -PRAZ1CAP2 PO; -QUET200T4 PO; -RIVA10TA PO
--- NOTE | 2020-06-01 08:43 | RAD ---
EXAM: CHEST PA LATERAL INDICATION: Reason: LEFT SIDED CHEST WALL PAIN, ANTERIOR/POSTERIOR PAIN X 5 WEEKS / Spl. Instructions: / History: . TECHNIQUE: PA and lateral views COMPARISON: 09/26/2018 chest x-ray FINDINGS: The heart size is normal. The great vessels appear unremarkable. There is no hilar or mediastinal mass. The lungs are clear. There is no pleural effusion or pneumothorax. There are no significant osseous abnormalities. Spinal stimulator extending up to the mid thoracic spine is unchanged. IMPRESSION: No active cardiopulmonary disease. Electronically signed by: Teri Sanchez MD (06/01/2020 8:40 AM) [id number]
== END | disposition home or self-care (01) ==
LOC: PMG 07:40
PROVIDERS: ATTEND Physician Assistant Medical
DX: R07.89 Other chest pain (principal)
CPT/HCPCS: 71046

== ENCOUNTER → 2020-06-18 | Outpatient (CLI) | payer BC, MEDICARE ==
--- NOTE | 2020-06-18 11:08 | RAD ---
EXAM: Right knee, 3 views HISTORY: Right knee pain, prior surgery. COMPARISON: None. FINDINGS: No fractures are identified. There is mild lateral compartmental joint space narrowing and osteophytosis. The medial compartmental joint space appears preserved. Alignment is normal. There is no clear joint effusion. IMPRESSION: 1. Mild lateral compartmental predominant osteoarthritis. Electronically signed by: Analilia Bartlett MD (06/18/2020 11:05 AM) [id number]
== END | disposition home or self-care (01) ==
LOC: DXRAD 08:37
PROVIDERS: ATTEND Orthopaedic Surgery
DX: M17.11 Unilateral primary osteoarthritis, right knee (principal); M25.761 Osteophyte, right knee
CPT/HCPCS: 73562

== ENCOUNTER 2020-07-07 01:52 | Observation (INO) | payer BC, MEDICARE ==
[~2020-07-07] VITALS: Ht 162.6 cm; Wt 82.5 kg
[~2020-07-07 01:52] MED LIST changes: -CETI10TA24 PO; +CETI10TA74 PO
--- NOTE | 2020-07-07 02:09 | PHYS DOC ---
Past History Past Medical History: Anxiety, Arthritis, Depression, Fibromyalgia, Gallstones, GERD, High Cholesterol, Hypothyroid, Kidney Stones, Other Additional Past Medical Histor: gastric ulcers Past Surgical History: Appendectomy, Cholecystectomy, Tonsillectomy Alcohol Use: None Drug Use: None Adult General Chief Complaint Chief Complaint: CHEST PAIN [facility] HPI Patient is a 59-year-old male who presents for chest pain. Patient reports this started 3 days ago without any known inciting event or trauma. Nothing known makes better or worse. Patient reports timing of symptoms has been constant since onset and worsening. Patient reports laying down to sleep, was unable to sleep due to chest pain that is described as substernal in nature, 6/10 in severity with radiation into left upper extremity. He has not taken anything in attempt to alleviate these symptoms. He is concerned because he has history of pulmonary embolism and suffered similar symptoms at time of diagnosis roughly 2 years ago. Associated symptoms include chest pain as described above, left arm fullness, and nausea. Patient denies fever, COVID-19 contact, headache, lightheadedness, dizziness or syncope, shortness of breath, productive cough, abdominal pain, or urinary symptoms. Patient reports having comprehensive cardiac evaluation consisting of negative echocardiogram and stress test performed 2 years ago. He has never had a cardiac catheterization and/or stent placement. He does not smoke, has not had any hemoptysis, long distance travel, calf tenderness, or noncompliance with prescribed Xarelto for which he takes his anticoagulation ever since pulmonary embolism. He does admit to family history of early cardiac disease and frequent use of NSAIDs; specifically, meloxicam Review of Systems Review of Systems Fourteen body systems of review of systems have been reviewed. See HPI for pertinent positives and negative responses, other up all other systems are negative, non-pertinent or non-contributory Allergies Allergies Allergies Coded Allergies Type Severity Reaction Last Updated Verified codeine Allergy Intermediate 02/01/15 No droperidol Adverse Reaction Intermediate 01/02/15 Yes morphine Adverse Reaction Intermediate 01/02/15 Yes Physical Exam Physical Exam Constitutional: Well developed, well nourished, anxious and in mild distress, n on-toxic appearance. HENT: Normocephalic, atraumatic, bilateral external ears normal, oropharynx moist, no oral exudates, nose normal. Eyes: PERRLA, EOMI, conjunctiva normal, no discharge. Neck: Normal range of motion, no tenderness, supple, no stridor. Cardiovascular: Heart rate regular, sinus rhythm, no murmurs rubs or gallops, chest wall nontender to palpation bilaterally Lungs & Thorax: Bilateral breath sounds clear to auscultation Abdomen: Bowel sounds normal, soft, no tenderness, no masses, no pulsatile masses. Nonsurgical abdomen, no peritoneal signs Skin: Warm, dry, no erythema, no rash. Back: No tenderness, no CVA tenderness. Extremities: No tenderness, no cyanosis, no clubbing, ROM intact, no edema. Negative Homans sign bilaterally Neurologic: Alert and oriented X 3, grossly normal motor & sensory function, no focal deficits noted. Psychologic: Affect normal, judgement normal, anxious mood Current Patient Data Vital Signs Vital Signs Date Time Temp Pulse Resp B/P (MAP) Pulse Ox O2 Delivery O2 Flow Rate FiO2 07/07/20 02:14 72 149/91 07/07/20 01:58 98.6 12 98 Room Air Lab Results Laboratory Tests Test 07/07/20 02:07 White Blood Count 3.9 x10^3/uL (4.0-11.0) Red Blood Count 3.86 x10^6/uL (4.30-5.70) Hemoglobin 10.6 g/dL (13.0-17.5) Hematocrit 32.2 % (39.0-53.0) Mean Corpuscular Volume 84 fL (79-100) Mean Corpuscular Hemoglobin 27 pg (25-35) Mean Corpuscular Hemoglobin Concent 33 g/dL (31-37) Red Cell Distribution Width 16.8 % (11.5-14.5) Platelet Count 176 x10^3/uL (140-400) Neutrophils (%) (Auto) 62 % (31-73) Lymphocytes (%) (Auto) 24 % (24-48) Monocytes (%) (Auto) 7 % (0-9) Eosinophils (%) (Auto) 6 % (0-3) Basophils (%) (Auto) 1 % (0-3) Neutrophils # (Auto) 2.4 x10^3uL (1.8-7.7) Lymphocytes # (Auto) 0.9 x10^3/uL (1.0-4.8) Monocytes # (Auto) 0.3 x10^3/uL (0.0-1.1) Eosinophils # (Auto) 0.2 x10^3/uL (0.0-0.7) Basophils # (Auto) 0.1 x10^3/uL (0.0-0.2) Sodium Level 143 mmol/L (136-145) Potassium Level 3.3 mmol/L (3.5-5.1) Chloride Level 109 mmol/L (98-107) Carbon Dioxide Level 21 mmol/L (21-32) Anion Gap 13 (6-14) Blood Urea Nitrogen 19 mg/dL (8-26) Creatinine 1.5 mg/dL (0.7-1.3) Estimated GFR (Cockcroft-Gault) 48.1 BUN/Creatinine Ratio 13 (6-20) Glucose Level 181 mg/dL (70-99) Calcium Level 8.8 mg/dL (8.5-10.1) Total Bilirubin 0.2 mg/dL (0.2-1.0) Aspartate Amino Transf (AST/SGOT) 15 U/L (15-37) Alanine Aminotransferase (ALT/SGPT) 31 U/L (16-63) Alkaline Phosphatase 106 U/L (46-116) Troponin I Quantitative < 0.017 ng/mL (0-0.055) [id number]-[id number]-Type Natriuretic Peptide 17 pg/mL (0-124) Total Protein 6.8 g/dL (6.4-8.2) Albumin 3.8 g/dL (3.4-5.0) Albumin/Globulin Ratio 1.3 (1.0-1.7) EKG EKG EKG ordered and interpreted by myself at 0203 hrs. as sinus rhythm at 82 bpm, prolonged QTC 475 otherwise unremarkable intervals, no axis deviation, no fascicular blocks, no acute ischemic findings, no STEMI Radiology/Procedures Radiology/Procedures 1 view chest radiograph plain film obtained and interpreted by myself as official radiologist read pending at this time, mild perihilar peribronchial cuffing without any other significant acute cardiopulmonary abnormalities Course & Med Decision Making Course & Med Decision Making Ambulatory but anxious patient in mild distress seen on immediate ER arrival ABCs grossly non-concerning, IV access obtained Comprehensive history and physical exam obtained, subsequent diagnostic studies ordered 162 mg aspirin and x1 sublingual nitro administered with moderate relief in patient's symptoms ER course discussed with patient, discussed grossly negative diagnostic work-up but discussed heart score greater than 3 and his increased risk of adverse cardiac events if discharged home without further medical observation and work- up as indicated I offered patient admission for medical observation with consideration for further cardiac monitoring in inpatient setting, he was agreeable On-call hospitalist, Dr. Borrego, contacted and case discussed. He was agreeable to admission under his care at [facility]. I agree with Dr. Borrego's decision to discontinue patient's meloxicam and start PPI in addition to continuing serial cardiac enzymes I relayed this conversation to patient who was still agreeable for admission. All questions and concerns addressed prior to ER discharge to [facility] via EMS in stable condition for medical observation Dragon Disclaimer Dragon Disclaimer This electronic medical record was generated, in whole or in part, using a voice recognition dictation system. The HEART Score for CP Pts HEART Score for Chest Pain: HEART Score for Chest Pain Response (Comments) Value History Moderately Suspicious 1 ECG Normal 0 Age >45 - < 65 1 Risk Factors >3 Risk Factors or Hx CAD 2 Troponin < Normal Limit 0 Total 4 Risk Factors: Risk Factors: DM, Current or recent (<one month) smoker, HTN, HLP, family history of CAD, obesity. Risk Scores: Score 0 - 3: 2.5% MACE over next 6 weeks - Discharge Home Score 4 - 6: 20.3% MACE over next 6 weeks - Admit for Clinical Observation Score 7 - 10: 72.7% MACE over next 6 weeks - Early Invasive Strategies Departure Departure: Impression: Primary Impression: Chest pain, rule out acute myocardial infarction Additional Impressions: Leukopenia Normocytic anemia History of pulmonary embolus (PE) Chronic anticoagulation Disposition: 09 ADMITTED INPATIENT Admitting Physician: Scott Borrego Condition: STABLE Referrals: ANNAMARIE DUBOIS (PCP) Justification of Admission: Justification of Admission: Justification of Admission Dx: Yes (Ongoing chest pain and high risk patient with heart score greater than 3) Problem Qualifiers CARMEN BRAVO DO Jul 07, 2020 02:09
[2020-07-07] MEDS ORDERED: NITROGLYCERIN SUBLINGUAL 0.4 MG BOTTLE OF 25. SL PRN ×2 (02:15→03:00)
[2020-07-07] MEDS ORDERED: ASPIRIN CHEWABLE 81 MG TABLET. PO ONE (02:15)
[2020-07-07 02:29] LABS: BASO # 0.1 x10^3/uL (0.0-0.2); BASO % 1 % (0-3); EOS # 0.2 x10^3/uL (0.0-0.7); EOS % 6 % (0-3); HEMATOCRIT 32.2 % (39.0-53.0); HEMOGLOBIN 10.6 g/dL (13.0-17.5); LYMPH # 0.9 x10^3/uL (1.0-4.8); LYMPH % 24 % (24-48); MEAN CORPUSCULAR HEMOGLOBIN 27 pg (25-35); MEAN CORPUSCULAR HGB CONC 33 g/dL (31-37); MEAN CORPUSCULAR VOLUME 84 fL (79-100); MONO # 0.3 x10^3/uL (0.0-1.1); MONO % 7 % (0-9); NEUT # 2.4 x10^3uL (1.8-7.7); NEUT % 62 % (31-73); PLATELET COUNT 176 x10^3/uL (140-400); RED BLOOD COUNT 3.86 x10^6/uL (4.30-5.70); RED CELL DISTRIBUTION WIDTH 16.8 % (11.5-14.5); WHITE BLOOD COUNT 3.9 x10^3/uL (4.0-11.0)
[2020-07-07 02:35] LABS: CALCIUM 8.8 mg/dL (8.5-10.1); CREATININE 1.5 mg/dL (0.7-1.3); GFR 48.1; POTASSIUM 3.3 mmol/L (3.5-5.1)
[2020-07-07 02:48] LABS: ALBUMIN 3.8 g/dL (3.4-5.0); ALBUMIN/GLOBULIN RATIO 1.3 (1.0-1.7); TOTAL BILIRUBIN 0.2 mg/dL (0.2-1.0); TOTAL PROTEIN 6.8 g/dL (6.4-8.2)
[2020-07-07] MEDS ORDERED: PANTOPRAZOLE 40 MG TABLET. PO ONE (03:00)
[2020-07-07] MEDS ORDERED: ACETAMINOPHEN 325 MG TABLET PO PRN (03:00)
--- NOTE | 2020-07-07 03:14 | RAD ---
PORTABLE CHEST 1V Clinical Indication: Reason: Chest pain, short of air / Comparison: Two-view chest, June 01, 2020. Findings: The cardiomediastinal silhouette is normal. Lungs are clear. There is no pneumothorax. No pleural effusion is appreciated. No acute bone abnormality. Spinal stimulator leads are noted. There is degenerative endplate spurring of the thoracic spine. IMPRESSION: No acute cardiopulmonary process. Electronically signed by: Wilfrid Wakefield MD (07/07/2020 3:11 AM) [facility]
--- NOTE | 2020-07-07 04:35 | NUR ---
Admission: The patient, BASSAM CRUZ, 59 y/o, M admitted by WILLIAN TRAMMELL MD, was given written information regarding hospital policies, unit procedures and contact persons. Pt arrived to room 119 via gurney, accompanied by [facility] and nursing sup. Pt A/Ox3, ambulatory. Pt here for c/o substernal chest pain with radiation down left arm rated 6:10 that has lasted for the past 3 days. Pt reports pain is no better or worse with movement. Pt placed on tele, showing SR with rate in the 60's. Pt with hx of PE due to PICC line complications and is on Xarelto for VTE. Pt has an extensive med list and reviewed them to the best of his knowledge. Pt to call his later this AM to confirm. Pt lives at home with his , son, and 3 grandchildren. Discussed POC, V/U. Call light in reach. Valuables were checked and logged. Left in room with pt.
--- NOTE | 2020-07-07 04:39 | NUR ---
Cardiology consult called to Arpit Treviño/Julio C with answering service.
[2020-07-07 04:40] VITALS: BP 158/102
[2020-07-07] MEDS ORDERED: GABA600T7 PO (05:20)
[2020-07-07] MEDS ORDERED: ALPR1TAB2 PO (05:20)
[2020-07-07] MEDS ORDERED: PRAZ1CAP2 PO (05:20)
[2020-07-07] MEDS ORDERED: QUET200T4 PO (05:20)
[2020-07-07] MEDS ORDERED: BUPR150T15 PO (05:20)
[2020-07-07] MEDS ORDERED: MELO15TA23 PO (05:20)
[2020-07-07] MEDS ORDERED: LEVO50TA5 PO (05:20)
[2020-07-07] MEDS ORDERED: RIVA10TA PO (06:06)
--- NOTE | 2020-07-07 06:10 | NUR ---
Pt placed on O2 at 2L via NC for sleep. Pt normally wears a CPAP at home.
[2020-07-07 06:22] VITALS: BP 143/97
--- NOTE | 2020-07-07 08:18 | PDOC2 ---
CARDIAC CONSULT DATE OF CONSULT DOS: DATE: 07/07/20 TIME: 08:13 REASON FOR CONSULT Reason for Consult Chest pain REFERRING PHYSICIAN Referring Physician Dr. Borrego SOURCE Source: Chart review, Patient HPI History of Present Illness This is a 59 yo male who presented secondary to chest pain. Patient reports pain began last Monday. Has been constant in nature. Located in his left chest and radiated down his left arm. Describes as stabbing in nature. Was diagnosed with PE a year ago. Patient reports pain to be the very same as what he experienced previously with PE. Is on OAC with Xarelto. Reports compliance with this. No associated dizziness, diaphoresis, palpitations, or nausea/vomiting. PAST MEDICAL HISTORY Cardiovascular: hyperipidemia Pulmonary: Pulmonary embolus, Other (RUBI) GI: GERD Psych: Anxiety, Depression Musculoskeletal: Osteoarthritis Renal/: Chronic renal insuff Endocrine: Hypothyroidism PAST SURGICAL HISTORY Past Surgical History: Appendectomy, Cholecystectomy, Tonsillectomy FAMILY HISTORY Family History: Heart Disease SOCIAL HISTORY Smoke: No ALCOHOL: none Drugs: None Lives: with Family CURRENT MEDICATIONS Current Medications Current Medications Aspirin (Aspirin Chewable) 162 mg 1X ONCE PO Last administered on 07/07/20at 02:13; Start 07/07/20 at 02:15; Stop 07/07/20 at 02:16; Status DC Nitroglycerin (Nitrostat) 0.4 mg PRN Q5MIN PRN SL CP RATING > 1/10 Last administered on 07/07/20at 02:14; Start 07/07/20 at 02:15; Stop 07/08/20 at 02:14 Acetaminophen (Tylenol) 650 mg PRN Q4HRS PRN PO FEVER > 100.3'F; Start 07/07/20 at 03:00; Stop 07/08/20 at 02:59 Nitroglycerin (Nitrostat) 0.4 mg PRN Q5MIN PRN SL CHEST PAIN; Start 07/07/20 at 03:00; Stop 07/08/20 at 02:59 Pantoprazole Sodium (Protonix) 40 mg 1X ONCE PO Last administered on 07/07/20at 03:42; Start 07/07/20 at 03:00; Stop 07/07/20 at 03:07; Status DC Active Scripts Active Ondansetron Odt (Ondansetron) 4 Mg Tab.rapdis 1 Tab PO PRN Q6-8HRS PRN Ibuprofen 600 Mg Tablet 600 Mg PO QIDPRN PRN Reported Xarelto (Rivaroxaban) 10 Mg Tablet 10 Mg PO DAILY Meloxicam 15 Mg Tablet 15 Mg PO DAILY Xanax (Alprazolam) 1 Mg Tablet 1 Mg PO PRN TID PRN Prazosin Hcl 1 Mg Capsule 1 Mg PO HS Seroquel (Quetiapine Fumarate) 200 Mg Tablet 200 Mg PO HS Wellbutrin Xl (Bupropion Hcl) 150 Mg Tab.er.24h 150 Mg PO DAILYWBKFT Gabapentin 600 Mg Tablet 600 Mg PO QID Levothyroxine Sodium 50 Mcg Tablet 50 Mcg PO DAILYAC Zyrtec (Cetirizine Hcl) 10 Mg Tablet 1 Tab PO DAILY ALLERGIES Allergies: Coded Allergies: codeine (Unverified Allergy, Intermediate, 02/01/15) droperidol (Verified Adverse Reaction, Intermediate, 01/02/15) morphine (Verified Adverse Reaction, Intermediate, 01/02/15) ROS Review of Systems 14 point ROS conducted with pertinent positives noted above in HPI PHYSICAL EXAM General: Alert, Oriented X3, Cooperative, No acute distress HEENT: Atraumatic Lungs: Clear to auscultation Heart: Regular rate Abdomen: Soft, No tenderness Extremities: No edema, Normal pulses Skin: No breakdown Neuro: Normal speech, Sensation intact Psych/Mental Status: Mental status NL, Mood NL MUSCULOSKELETAL: Osteoarthritic changes both hands VITALS Vital Signs Vital Signs Date Time Temp Pulse Resp B/P (MAP) Pulse Ox O2 Delivery O2 Flow Rate FiO2 07/07/20 06:22 72 16 143/97 (112) 100 Nasal Cannula 2.0 07/07/20 04:40 97.6 LABS LABS Laboratory Tests Test 07/07/20 02:07 White Blood Count 3.9 x10^3/uL (4.0-11.0) Red Blood Count 3.86 x10^6/uL (4.30-5.70) Hemoglobin 10.6 g/dL (13.0-17.5) Hematocrit 32.2 % (39.0-53.0) Mean Corpuscular Volume 84 fL (79-100) Mean Corpuscular Hemoglobin 27 pg (25-35) Mean Corpuscular Hemoglobin Concent 33 g/dL (31-37) Red Cell Distribution Width 16.8 % (11.5-14.5) Platelet Count 176 x10^3/uL (140-400) Neutrophils (%) (Auto) 62 % (31-73) Lymphocytes (%) (Auto) 24 % (24-48) Monocytes (%) (Auto) 7 % (0-9) Eosinophils (%) (Auto) 6 % (0-3) Basophils (%) (Auto) 1 % (0-3) Neutrophils # (Auto) 2.4 x10^3uL (1.8-7.7) Lymphocytes # (Auto) 0.9 x10^3/uL (1.0-4.8) Monocytes # (Auto) 0.3 x10^3/uL (0.0-1.1) Eosinophils # (Auto) 0.2 x10^3/uL (0.0-0.7) Basophils # (Auto) 0.1 x10^3/uL (0.0-0.2) Sodium Level 143 mmol/L (136-145) Potassium Level 3.3 mmol/L (3.5-5.1) Chloride Level 109 mmol/L (98-107) Carbon Dioxide Level 21 mmol/L (21-32) Anion Gap 13 (6-14) Blood Urea Nitrogen 19 mg/dL (8-26) Creatinine 1.5 mg/dL (0.7-1.3) Estimated GFR (Cockcroft-Gault) 48.1 BUN/Creatinine Ratio 13 (6-20) Glucose Level 181 mg/dL (70-99) Calcium Level 8.8 mg/dL (8.5-10.1) Total Bilirubin 0.2 mg/dL (0.2-1.0) Aspartate Amino Transf (AST/SGOT) 15 U/L (15-37) Alanine Aminotransferase (ALT/SGPT) 31 U/L (16-63) Alkaline Phosphatase 106 U/L (46-116) Troponin I Quantitative < 0.017 ng/mL (0-0.055) GI-Vvm-W-Type Natriuretic Peptide 17 pg/mL (0-124) Total Protein 6.8 g/dL (6.4-8.2) Albumin 3.8 g/dL (3.4-5.0) Albumin/Globulin Ratio 1.3 (1.0-1.7) ASSESSMENT/PLAN Assessment/Plan 1. Chest pain, atypical. Initial trop negative 2. RUBI with CPAP 3. H/o PE on OAC with Xarelto 4. CKD; Cr stable per review 5. Hypokalemia 6. Depression, anxiety Recommendations ASA Lipids, TSH Trend troponin Echo to assess LV systolic function; this can be done as outpatient If trop remains normals, will arranged outpatient ischemic evaluation given risk factors F/u in our office with Dr. Mon as scheduled. LEENA WAKEFIELD APRN Jul 07, 2020 08:18
--- NOTE | 2020-07-07 08:22 | EKG ---
[address] [address] Test Date: 2020-07-07 Test Time: 01:58:38 Pat Name: BASSAM CRUZ Department: Room: 119 A Gender: M Systems Integration Advisor: VALDEMAR : 1960 Requested By: CARMEN BRAVO Order Number: [id number] Reading MD: Measurements Intervals [place] Rate: 82 P: 54 WI: 144 QRS: 48 QRSD: 82 T: 48 QT: 404 QTc: 475 Interpretive Statements SINUS RHYTHM PROLONGED QT NO SPECIFIC ECG ABNORMALITIES RI6.02 No previous ECG available for comparison
[2020-07-07] MEDS ORDERED: POTASSIUM CHLORIDE 20 MEQ TABLET.ER. PO ONE (08:45)
[2020-07-07] MEDS ORDERED: ASPIRIN ENTERIC COATED 81 MG TABLET.DR. PO SCH (09:00)
--- NOTE | 2020-07-07 11:06 | HP ---
ADMIT DATE: 07/07/2020 ATTENDING PHYSICIAN: Dr. Trammell. CHIEF COMPLAINT: Chest pain. HISTORY OF PRESENT ILLNESS: The patient is a pleasant 59-year-old gentleman admitted to the ED with localized epigastric chest pain that started 3 days ago, no inciting event and nonexertional, nothing makes it better or worse. He reports lying down to sleep, unable to sleep due to the chest pain, 6/10 in nature. No recent COVID-19 exposure. He does have a significant anxiety component. In addition, he has been on a couple of nonsteroidals including ibuprofen [id number] as well as scheduled meloxicam. Therefore, he is admitted then for further treatment, coronary ischemia ruled out, serial enzymes, stopping his NSAIDs and initiating proton pump inhibitor. PAST MEDICAL HISTORY: Significant for depression, anxiety due to disability, degenerative arthritis due to a trauma to the leg, depression, fibromyalgia, gallstones, gastroesophageal reflux disease, hyperlipidemia, hypothyroidism and kidney stones. PAST SURGICAL HISTORY: Includes appendectomy, cholecystectomy and tonsillectomy. ALLERGIES: He has allergies to CODEINE, DROPERIDOL and MORPHINE, exact reactions unclear. SOCIAL HISTORY: He is a nonsmoker, nondrinker. SOCIAL HISTORY: He is retired. He is under a lot of stress of raising 3 grandkids from his sons. FAMILY HISTORY: Noncontributory. REVIEW OF SYSTEMS: Significant for frequent panic attacks. He tells me that his psychiatric provider has been trying to cut back on his Xanax. In addition, he has degenerative arthritis with recent weather changes. No nausea. No bleeding. All other systems reviewed and turned out to be negative. PHYSICAL EXAMINATION: GENERAL: When I saw him, this is a pleasant, middle-aged gentleman. INITIAL VITAL SIGNS: Showed a blood pressure of 143/97 mmHg, pulse of 72 and regular, he was afebrile, oxygen saturation 99% on room air. HEENT: Head is without trauma. Pupils are reactive. Sclerae are nonicteric. Oropharynx clear. NECK: Supple, no bruits identified. LUNGS: Otherwise, clear to auscultation. CARDIOVASCULAR: Showed regular heart tones. No gallops. Peripheral pulses are palpable and full. ABDOMEN: Soft, scaphoid, nontender, no organomegaly. Bowel sounds are normoactive. EXTREMITIES: Showed no cyanosis or edema. NEUROLOGIC: Focally intact. SKIN: Warm and dry. IMAGING AND LABORATORY DATA: Chest x-ray on admission showed no acute infiltrate or process. Heart size is at the regular size, no intracardiac or pulmonary process ongoing. The hemoglobin is 10.6 g/dL with a white count of 3900. Sodium 143, potassium 3.3 mEq, he is asymptomatic, this will be followed up as an outpatient. The first set of cardiac enzymes are negative for myocardial ischemia. Creatinine is 1.5 mg/dL. ASSESSMENT: 1. A 59-year-old gentleman with atypical chest pain, I believe these are noncardiac in nature. 2. Probable NSAID gastritis. 3. Underlying depression with anxiety. 4. Frequent panic attacks. 5. Gastroesophageal reflux disease. 6. Degenerative arthritis. 7. History of gallstones. 8. Fibromyalgia. 9. Hypothyroidism, on replacement. PLAN: 1. Admit to the observation status. 2. Serial cardiac enzymes. 3. Diet as tolerated. 4. Stop nonsteroidals. 5. Proton pump inhibitor dose increased to 40 mg of Protonix daily. WILLIAN TRAMMELL MD DR: EDELMIRA/ramonita JOB#: [id number] / [id number] ANNAMARIE Hall
--- NOTE | 2020-07-07 11:08 | HP ---
ADMIT DATE: 07/07/2020 ADDENDUM The patient also has a recent history of pulmonary embolus documented from the DVT. He is on Xarelto and this will be continued. WILLIAN TRAMMELL MD DR: EDELMIRA/ramonita JOB#: [id number] / [id number]
[2020-07-07] MEDS ORDERED: CETIRIZINE HCL 10 MG TABLET PO SCH (11:15)
[2020-07-07] MEDS ORDERED: buPROPion XL 150 MG TAB.ER.24H PO SCH (11:15)
[2020-07-07 11:19] VITALS: BP 149/91
[2020-07-07] MEDS ORDERED: ALPRAZolam 0.5 MG TABLET PO PRN (11:30)
[2020-07-07] MEDS ORDERED: LEVOTHYROXINE 50 MCG TABLET PO SCH (11:30)
--- NOTE | 2020-07-07 11:39 | DS ---
DATE OF DISCHARGE: 07/07/2020 ATTENDING PHYSICIAN: Dr. Trammell. FINAL DISCHARGE DIAGNOSES: 1. Atypical chest pain, coronary ischemia ruled out. 2. NSAID gastritis. 3. Strong anxiety component with panic attack. 4. Underlying depression with anxiety. 5. History of pulmonary embolus, currently anticoagulated. 6. Chronic anemia. 7. Chronic anticoagulation. 8. Degenerative arthritis. 9. Hypothyroidism, on replacement. HISTORY AND PHYSICAL: The patient is a pleasant 59-year-old gentleman with underlying depression and anxiety. He presented to the ED with atypical chest pain, new onset. He has been taking ibuprofen and meloxicam. He was admitted for observation and serial cardiac enzymes. PHYSICAL EXAMINATION: Please see the dictated note. PERTINENT LABS AND X-RAY STUDIES: Troponin levels were nonischemic. CBC showed a hemoglobin of 10.6 g/dL, white count was 3900. Electrolytes within normal range. Potassium is 3.3 mEq. This will be followed up as an outpatient. COURSE IN THE HOSPITAL: The patient was admitted. Serial enzymes were negative for coronary ischemia. We stopped his NSAID use and we increased his Protonix to 40 mg daily. He did well. Chest pain subsided. We had a long discussion regarding management. I believe he needs to be back on the 1 mg 3 times a day of the Xanax to help his symptoms. Therefore, later on the day of admission, he was stable. He was feeling better. Oxygen saturations were adequate. No further chest pain. Blood pressure was 143/97, pulse is regular. He was afebrile and oxygen saturations were quite adequate on room air. At this time, I recommend that he stop the ibuprofen and meloxicam altogether. In addition, he should continue his alprazolam 1 mg 3 times a day, BuSpar daily, Zyrtec, Neurontin 600 mg q.i.d. for neurogenic pain and Synthroid 50 mcg daily, prazosin, Seroquel, and Xarelto 10 mg daily. I recommend that he increase his Protonix to 40 mg p.o. daily. He was discharged then in stable condition with explicit instructions and followup care. He will see Josephine Espinal at the scheduled time. WILLIAN TRAMMELL MD DR: EDELMIRA/ramonita JOB#: [id number] / [id number] JOSEPHINE Hall
[2020-07-07] MEDS ORDERED: GABAPENTIN 300 MG CAPSULE. PO SCH (13:00)
--- NOTE | 2020-07-07 13:39 | NUR ---
Patient was discharged home. Discharge instructions were reviewed and patient verbalized understanding. Patient is to schedule an Echo and Stress test with Dr. Mon and then follow up with Dr Mon post tests. Also recommended patient follow up with primary care physician within 1-2 weeks.
[2020-07-07] MEDS ORDERED: PRAZOSIN 1 MG CAPSULE. PO SCH (21:00)
[2020-07-07] MEDS ORDERED: QUEtiapine 100 MG TABLET. PO SCH (21:00)
== END 2020-07-07 13:30 | disposition home or self-care (01) ==
LOC: ER 01:52 → 1 SOUTH 04:34
PROVIDERS: ADMIT Hospitalist; ATTEND Hospitalist
DX: R07.89 Other chest pain (principal); F41.9 Anxiety disorder, unspecified; F32.9 Major depressive disorder, single episode, unspecified; F41.0 Panic disorder [episodic paroxysmal anxiety]; K21.9 Gastro-esophageal reflux disease without esophagitis; M19.90 Unspecified osteoarthritis, unspecified site; M79.7 Fibromyalgia; D64.9 Anemia, unspecified; D72.819 Decreased white blood cell count, unspecified; E03.9 Hypothyroidism, unspecified; K80.80 Other cholelithiasis without obstruction; E78.5 Hyperlipidemia, unspecified; E78.00 Pure hypercholesterolemia, unspecified; E87.6 Hypokalemia; G47.33 Obstructive sleep apnea (adult) (pediatric); K29.70 Gastritis, unspecified, without bleeding; I26.99 Other pulmonary embolism without acute cor pulmonale; Z86.711 Personal history of pulmonary embolism; Z90.49 Acquired absence of other specified parts of digestive tract; Z87.442 Personal history of urinary calculi; Z79.899 Other long term (current) drug therapy; Z87.11 Personal history of peptic ulcer disease; Z79.01 Long term (current) use of anticoagulants
CPT/HCPCS: 36415; 71045; 80053; 80061; 83735; 83880; 84443; 84484; 85025; 93005; 99285; G0378; G0379

== ENCOUNTER → 2020-10-15 | Outpatient (CLI) | payer BC, MEDICARE ==
[~2020-10-15] MED LIST changes: +ALPR1TAB2 PO; +BUPR150T15 PO; +GABA600T7 PO; +LEVO50TA5 PO; +MELO15TA23 PO; +PRAZ1CAP2 PO; +QUET200T4 PO; +RIVA10TA PO
--- NOTE | 2020-10-15 15:19 | RAD ---
EXAM: Right knee, 3 views. HISTORY: Arthroplasty. COMPARISON: None. FINDINGS: 3 views of the right knee are obtained. There is a right knee arthroplasty in expected posi tion. There is a large joint effusion. IMPRESSION: 1. Right knee arthroplasty in expected position. 2. Large right knee joint effusion. Electronically signed by: Fabiola Lennon MD (10/15/2020 3:17 PM) [facility]
== END ==
LOC: DXRAD 11:23
PROVIDERS: ATTEND Physician Assistant
DX: M25.561 Pain in right knee (principal); Z96.651 Presence of right artificial knee joint
CPT/HCPCS: 73562

== ENCOUNTER → 2021-03-12 | Outpatient (CLI) | payer BC, MEDICARE ==
[~2021-03-12] MED LIST changes: +IOHEXOL 240 MG/ML 50ML VIAL. ONE; +IOHEXOL 300 MG/ML 75 ML VIAL. IV ONE
--- NOTE | 2021-03-12 10:22 | RAD ---
EXAMINATION: CT abdomen and pelvis with IV contrast. INDICATION: Abdominal pain, diarrhea and constipation. TECHNIQUE: Axial CT images of the abdomen and pelvis were obtained. Coronal and sagittal reformatted performed. COMPARISON: 04/21/2020. Exposure: One or more of the following individualized dose reduction techniques were utilized for thi s examination: 1. Automated exposure control 2. Adjustment of the mA and/or kV according to patient size 3. Use of iterative reconstruction technique. FINDINGS: LOWER CHEST: Unremarkable ABDOMEN/PELVIS: Subcentimeter hypodensities in both hepatic lobes, too small to characterize. Otherwise, normal morph ology and size of the liver with homogeneous enhancement. Cholecystectomy. Central intrahepatic hepat ic blood ductal dilation, likely secondary to postcholecystectomy status. Unremarkable spleen. Mildly atrophic pancreas with fat infiltration. No adrenal nodule. No hydronephrosis in either kidney. The previous 1.2 cm nonobstructing right nephrolithiasis is now m easures 0.6 cm, likely secondary to post treatment changes. Punctate nonobstructing bilateral nephrol ithiasis, measures up to 3 mm. No bowel obstruction or wall thickening. Normal caliber abdominal aorta. Mesenteric arteries and port al vein are patent. No lymphadenopathy in the abdomen or pelvis by size criteria. No pneumoperitoneum or ascites. Underdistended urinary bladder which limits evaluation. Mild prostatomegaly indents blad antoinette base, measures up to 4 cm in craniocaudal dimension. MUSCULOSKELETAL: Grade 1 anterolisthesis of L4 over L5. No acute osseous process or suspicious lesion. Neurostimulator lead wires seen within the lower thoracic spine and the generator in the subcutaneous tissue of the left flank region. Small fat-containing left inguinal hernia. IMPRESSION: 1. No acute abnormality in the abdomen and pelvis. 2. Punctate nonobstructing bilateral nephrolithiasis. 3. The previous 1.2 cm nonobstructing right nephrolithiasis is now measures 0.6 cm, likely posttreatm ent changes. 4. Mild prostamegaly indents bladder base. Consider correlation with PSA level. Electronically signed by: Archie Mar MD (03/12/2021 10:20 AM) [id number]
== END ==
LOC: CT 08:17
PROVIDERS: ATTEND Internal Medicine Gastroenterology
DX: N40.0 Benign prostatic hyperplasia without lower urinary tract symptoms (principal); K59.00 Constipation, unspecified; N20.0 Calculus of kidney
CPT/HCPCS: 74177; Q9967

== ENCOUNTER → 2021-05-01 | Outpatient (CLI) | payer BC, MEDICARE ==
[~2021-05-01] MED LIST changes: -IOHEXOL 240 MG/ML 50ML VIAL. ONE; -IOHEXOL 300 MG/ML 75 ML VIAL. IV ONE
--- NOTE | 2021-05-01 09:17 | RAD ---
XR CHEST 2V History: Reason: cough, foreign object / Spl. Instructions: / History: Comparison: July 07, 2020 Findings: No consolidation or pleural effusion. Normal heart size. No pneumothorax. Spinal stimulator leads not ed. No radiopaque foreign body. Impression: 1. No acute cardiopulmonary process. Electronically signed by: Eric Larsen DO (05/01/2021 9:14 AM) [facility]
== END ==
LOC: DXRAD 08:40
PROVIDERS: ATTEND Physician Assistant
DX: T18.9XXA Foreign body of alimentary tract, part unspecified, initial encounter (principal); X58.XXXA Exposure to other specified factors, initial encounter; Y93.89 Activity, other specified; Y92.89 Other specified places as the place of occurrence of the external cause; Y99.8 Other external cause status
CPT/HCPCS: 71046

== ENCOUNTER 2021-06-16 22:45 | Emergency (ER) | payer BC, MEDICARE ==
[~2021-06-16] VITALS: Ht 162.6 cm; Wt 77.6 kg
[2021-06-16] MEDS ORDERED: IOHEXOL 240 MG/ML 50ML VIAL. ONE (23:40)
[2021-06-16] MEDS ORDERED: KETOROLAC 15 MG/ML VIAL. IVP ONE (23:45)
[2021-06-16] MEDS ORDERED: ONDANSETRON PF 4 MG/2 ML VIAL. IVP ONE (23:45)
[2021-06-16] MEDS ORDERED: CONTRAST GIVEN. MC PRN (23:45)
[2021-06-16] MEDS ORDERED: IOHEXOL 300 MG/ML 75 ML VIAL. IV ONE (23:45)
[2021-06-16] MEDS ORDERED: FAMOTIDINE 20 MG/2 ML VIAL IVP ONE (23:45)
[2021-06-16] MEDS ORDERED: IV NORMAL SALINE 1,000ML 1,000 ML IV ONE (23:45)
--- NOTE | 2021-06-16 23:53 | PHYS DOC ---
Past History Past Medical History: Anxiety, Arthritis, Depression, Fibromyalgia, Gallstones, GERD, High Cholesterol, Hypothyroid, Kidney Stones, Other Additional Past Medical Histor: gastric ulcers, PE,small bowel obstruction Past Surgical History: Appendectomy, Cholecystectomy, Knee Replacement, Tonsillectomy, Other Additional Past Surgical Histo: Hiatal Hernia, juan manuel fundoplication, left shoulder Smoking: Non-smoker Alcohol Use: None Drug Use: None General Adult EDM: Chief Complaint: NAUSEA/VOMITING/DIARRHEA HPI: HPI: 60-year-old male presents with report of progressive abdominal pain with associated nausea this been ongoing for the past 4 months. Patient reports he feels distended. Reports has been seen by GI yesterday with Dr. Coulter who has scheduled him to get a upper GI on Monday. Patient is also recently seen his PCP who started him on doxycycline yesterday for enlarged prostate and urinary frequency/dysuria. Patient denies any fever or chills. Denies trauma. Denies known sick contacts. Denies known exposure to COVID-19. Patient reports receiving [employer] COVID-19 vaccination. Patient reports concern for possible small bowel obstruction for which he had a prior issue requiring admission at outside facility. Review of Systems: Review of Systems: Constitutional: Denies fever or chills Eyes: Denies redness or eye pain HENT: Denies nasal congestion or sore throat Respiratory: Denies cough or shortness of breath Cardiovascular: Denies chest pain or palpitations GI: Reports abdominal pain and nausea; denies vomiting : Reports dysuria and increased urinary frequency Musculoskeletal: Denies back pain or joint pain Integument: Denies rash or skin lesions Neurologic: Denies headache, focal weakness or sensory changes Complete systems were reviewed and found to be within normal limits, except as documented in this note. Current Medications: Current Meds: Current Medications Medications (Trade) Dose Ordered Sig/Zarina Start Time Stop Time Status Last Admin Dose Admin Famotidine (Pepcid Vial) 20 mg 1X ONCE 06/16/21 23:45 06/16/21 23:46 DC 06/16/21 23:49 20 MG Info (Do NOT chart on this entry -- for MONITORING) 1 each PRN DAILY PRN 06/16/21 23:45 06/18/21 23:44 Iohexol (Omnipaque 240 Mg/ml) 50 ml STK-MED ONCE 06/16/21 23:40 06/16/21 23:40 DC Iohexol (Omnipaque 300 Mg/ml) 75 ml 1X ONCE 06/16/21 23:45 06/16/21 23:46 DC Ketorolac Tromethamine (Toradol 15mg Vial) 10 mg 1X ONCE 06/16/21 23:45 06/16/21 23:46 DC 06/16/21 23:50 10 MG Ondansetron HCl (Zofran) 4 mg 1X ONCE 06/16/21 23:45 06/16/21 23:46 DC 06/16/21 23:50 4 MG Sodium Chloride 1,000 ml @ 1,000 mls/hr 1X ONCE 06/16/21 23:45 06/17/21 00:44 06/16/21 23:50 1,000 MLS/HR Allergies: Allergies: Allergies Coded Allergies Type Severity Reaction Last Updated Verified codeine Allergy Intermediate 06/16/21 No droperidol Adverse Reaction Intermediate 06/16/21 Yes morphine Adverse Reaction Intermediate 06/16/21 Yes Physical Exam: PE: Constitutional: Well developed, well nourished, no acute distress, non-toxic appearance HENT: Normocephalic, atraumatic Eyes: Conjunctiva normal, no discharge Neck: Normal range of motion, no tenderness, supple Lungs & Thorax: No respiratory distress, equal chest rise and fall Abdomen: Soft, mild diffuse tenderness, mild distention, no rebound tenderness/guarding Skin: Warm, dry, no erythema, no rash Back: No tenderness, no CVA tenderness Extremities: No tenderness, ROM intact, no edema Neurologic: Alert and oriented X 3, no focal deficits noted Psychologic: Affect normal, judgment normal Current Patient Data: Vital Signs: Vital Signs Date Time Temp Pulse Resp B/P (MAP) Pulse Ox O2 Delivery O2 Flow Rate FiO2 06/16/21 22:50 98.5 92 18 175/109 97 Room Air EKG: EKG: @2341 NSR at 69bpm, NO ST elevation, QRS 80ms, QT/QTc 386/415ms Radiology/Procedures: Radiology/Procedures: PROCEDURE: CT ABD PELV W/ORAL&IV CONTRAST CT abdomen and pelvis with contrast PQRS statement: CT scans at this facility use dose reduction including either automated exposure control, iterative reconstructions, and /or weight based radiation dosing via mA and kV modification when appropriate to reduce radiation dose to as low as reasonably achievable. Contrast: 75 mL Omnipaque 350 intravenous contrast. COMPARISON: CT abdomen and pelvis the 2020 HISTORY: Abdominal pain and distention. Nausea and vomiting. Abdomen findings: Lung bases unremarkable. Grade 1 anterolisthesis L4 on L5 and lower lumbar disc bulges and facet spurring with spinal canal and neural foraminal stenoses. Thoracic spinal stimulator. Tiny subcentimeter hypodensities of the liver are too small to characterize stable to the prior exam most likely small cysts. Cholecystectomy. Nephrolithiasis. No ureteral calculi evident. Mild fatty pancreas. Adrenals, spleen unremarkable. No obstruction or inflammation of the GI tract. Appendix is not visualized may be surgically absent no pericecal inflammation evident. No abdominal fluid or adenopathy. Prior abdominal wall hernia repair again demonstrated. Pelvis findings: There appears be mild deep pelvic lipomatosis, stable. Mild enlargement of the base the prostate stable. Bladder, rectum and bones are unremarkable. No pelvic fluid or adenopathy. IMPRESSION: 1. No acute process. 2. Nephrolithiasis. 3. Stable chronic incidental findings as described above. Electronically signed by: Noe Nelson MD (06/17/2021 1:03 AM) [facility] Heart Score: C/O Chest Pain: N/A Course & Med Decision Making: Course & Med Decision Making Pertinent Labs and Imaging studies reviewed. (See chart for details) Patient presents with chronic abdominal pain and nausea which is progressively worsened. Patient has been following with PCP and GI. Patient is scheduled to see GI on Monday for procedure. Patient reports tonight symptoms became worse and therefore decided to present to the ER for further evaluation. EKG stable. Labs obtained and posted to chart. CT abdomen/pelvis without acute process. Patient stable for discharge with outpatient follow-up with PCP/GI. Discussed findings and plan with patient, who acknowledges understanding and agreement. Slime Disclaimer: Slime Disclaimer: This electronic medical record was generated, in whole or in part, using a voice recognition dictation system. Departure Departure: Impression: Primary Impression: Chronic abdominal pain Additional Impressions: Chronic nausea Dysuria Disposition: HOME / SELF CARE / HOMELESS Condition: STABLE Referrals: ANNAMARIE DUBOIS (PCP) JOSAFAT COULTER MD Patient Instructions: Abdominal Pain, [id number], Chronic Pain, Chronic Pain Management, Dysuria, Nausea, Adult, [id number] Additional Instructions: Follow closely with GI. May require follow-up with urology. Continue previously prescribed antibiotic therapy to completion. Give copy of your CT results to your doctor for further management. Scripts Ondansetron (ONDANSETRON ODT) 4 Mg Tab.rapdis 1 TAB PO PRN Q6-8HRS PRN for NAUSEA, #16 TAB Prov: DREW FORREST DO 06/17/21 Hyoscyamine Sulfate (LEVSIN-SL) 0.125 Mg Tab.subl 0.125 MG SL Q4-6HRS PRN for PAIN, #14 TAB Prov: DREW FORREST DO 06/17/21 Famotidine (PEPCID) 20 Mg Tablet 1 TAB PO BID for Gastritis, #20 TAB Prov: DREW FORREST DO 06/17/21 DREW FORREST DO Jun 16, 2021 23:53
[2021-06-16 23:56] LABS: BASO # 0.1 x10^3/uL (0.0-0.2); BASO % 1 % (0-3); EOS # 0.1 x10^3/uL (0.0-0.7); EOS % 2 % (0-3); HEMATOCRIT 34.5 % (39.0-53.0); HEMOGLOBIN 11.1 g/dL (13.0-17.5); LYMPH # 0.9 x10^3/uL (1.0-4.8); LYMPH % 21 % (24-48); MEAN CORPUSCULAR HEMOGLOBIN 27 pg (25-35); MEAN CORPUSCULAR HGB CONC 32 g/dL (31-37); MEAN CORPUSCULAR VOLUME 85 fL (79-100); MONO # 0.4 x10^3/uL (0.0-1.1); MONO % 8 % (0-9); NEUT # 2.9 x10^3uL (1.8-7.7); NEUT % 67 % (31-73); PLATELET COUNT 218 x10^3/uL (140-400); RED BLOOD COUNT 4.07 x10^6/uL (4.30-5.70); RED CELL DISTRIBUTION WIDTH 15.1 % (11.5-14.5); WHITE BLOOD COUNT 4.4 x10^3/uL (4.0-11.0)
[2021-06-17 00:01] LABS: BACTERIA,URINE 0 /HPF (0-FEW); BILIRUBIN,URINE NEG (NEG); CLARITY,URINE CLEAR; COLOR,URINE YELLOW; GLUCOSE,URINE NEG (NEG); NITRITE,URINE NEG (NEG); RBC,URINE 0 /HPF (0-2); UROBILINOGEN,URINE 0.2 mg/dL (0.2 mg/dL)
[2021-06-17 00:03] LABS: CALCIUM 8.5 mg/dL (8.5-10.1); CREATININE 1.2 mg/dL (0.7-1.3); POTASSIUM 3.9 mmol/L (3.5-5.1)
[2021-06-17 00:20] LABS: ALBUMIN 4.1 g/dL (3.4-5.0); ALBUMIN/GLOBULIN RATIO 1.5 (1.0-1.7); TOTAL BILIRUBIN 0.3 mg/dL (0.2-1.0); TOTAL PROTEIN 6.8 g/dL (6.4-8.2)
--- NOTE | 2021-06-17 01:06 | RAD ---
CT abdomen and pelvis with contrast PQRS statement: CT scans at this facility use dose reduction including either automated exposure cont rol, iterative reconstructions, and /or weight based radiation dosing via mA and kV modification when appropriate to reduce radiation dose to as low as reasonably achievable. Contrast: 75 mL Omnipaque 350 intravenous contrast. COMPARISON: CT abdomen and pelvis the 2020 HISTORY: Abdominal pain and distention. Nausea and vomiting. Abdomen findings: Lung bases unremarkable. Grade 1 anterolisthesis L4 on L5 and lower lumbar disc bul ges and facet spurring with spinal canal and neural foraminal stenoses. Thoracic spinal stimulator. T iny subcentimeter hypodensities of the liver are too small to characterize stable to the prior exam m ost likely small cysts. Cholecystectomy. Nephrolithiasis. No ureteral calculi evident. Mild fatty mathis creas. Adrenals, spleen unremarkable. No obstruction or inflammation of the GI tract. Appendix is not visualized may be surgically absent no pericecal inflammation evident. No abdominal fluid or adenopa thy. Prior abdominal wall hernia repair again demonstrated. Pelvis findings: There appears be mild deep pelvic lipomatosis, stable. Mild enlargement of the base the prostate stable. Bladder, rectum and bones are unremarkable. No pelvic fluid or adenopathy. IMPRESSION: 1. No acute process. 2. Nephrolithiasis. 3. Stable chronic incidental findings as described above. Electronically signed by: Noe Nelson MD (06/17/2021 1:03 AM) [facility]
[2021-06-17] MEDS ORDERED: HYOS0.1265 SL (01:18)
[2021-06-17] MEDS ORDERED: ONDA4TAB12 PO (01:18)
[2021-06-17] MEDS ORDERED: FAMO-63 PO (01:18)
[2021-06-17 01:19] VITALS: BP 155/90
--- NOTE | 2021-06-17 04:47 | EKG ---
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
== END 2021-06-17 01:23 | disposition home or self-care (01) ==
LOC: ER 22:45
DX: G89.29 Other chronic pain (principal); R10.84 Generalized abdominal pain; R11.0 Nausea; R30.0 Dysuria; M19.90 Unspecified osteoarthritis, unspecified site; F41.9 Anxiety disorder, unspecified; F32.9 Major depressive disorder, single episode, unspecified; M79.7 Fibromyalgia; K21.9 Gastro-esophageal reflux disease without esophagitis; E78.00 Pure hypercholesterolemia, unspecified; E03.9 Hypothyroidism, unspecified; Z87.442 Personal history of urinary calculi; Z90.89 Acquired absence of other organs; Z90.49 Acquired absence of other specified parts of digestive tract; Z88.5 Allergy status to narcotic agent; Z88.8 Allergy status to other drugs, medicaments and biological substances
CPT/HCPCS: 36415; 74177; 80053; 81001; 82553; 83605; 83690; 83735; 84484; 85025; 93005; 96361; 96374; 96375; 99285; J1885; J2405; J3490; J7030; Q9967

== ENCOUNTER → 2021-06-18 | Outpatient (CLI) | payer BC, MEDICARE ==
[2021-06-17 01:19] VITALS: BP 155/90
[~2021-06-18] MED LIST changes: +FAMO-63 PO; +HYOS0.1265 SL
--- NOTE | 2021-06-18 11:42 | RAD ---
Exam performed: Barium upper GI and follow-through exam. HISTORY: Abdominal pain. DATE OF SERVICE: 06/18/2021. COMPARISON: CT abdomen and pelvis from 06/16/2021 FINDINGS: The patient was administered effervescent crystals followed by thick and thin barium and several over head and fluoroscopic images were obtained. The esophagus is normal in course and caliber. Normal peristalsis is seen. Gastroesophageal junction appears normal. There is no reflux. The stomach is normal in distensibility and mucosal pattern the duodenum appears unremarkable. The je junal and ileal loops appear unremarkable. Radiographic contrast is seen in the colon at approximatel y 18 minutes. Spot images were not obtained. Fluoroscopic time was not provided IMPRESSION: Essentially unremarkable barium upper GI and follow-through exam. Electronically signed by: Abril Villa MD (06/18/2021 11:40 AM) [id number]
== END ==
LOC: DXRAD 09:05
PROVIDERS: ATTEND Internal Medicine Gastroenterology
DX: R14.0 Abdominal distension (gaseous) (principal); R10.9 Unspecified abdominal pain; Z87.898 Personal history of other specified conditions
CPT/HCPCS: 74240; 74245; 74248

== ENCOUNTER → 2022-02-01 | Outpatient (CLI) | payer BC, MEDICARE ==
--- NOTE | 2022-02-01 12:03 | RAD ---
EXAMINATION: XR CHEST 2V CLINICAL HISTORY: ASPIRATED A PILL THIS AM, COUGHING EPISODE X 1 HR. EXAM DATE/TIME: 02/01/2022 10:03 AM COMPARISON: 05/28/2021 FINDINGS: Lines, Tubes, and Devices: None. Cardiomediastinal Silhouette: Normal heart size. Lungs and Pleura: No evidence of focal airspace consolidation or pleural effusion. Pulmonary vasculat ure unremarkable. Bones and Soft Tissues: Degenerative changes in the thoracic spine. Partially visualized spinal stimu lator. Cholecystectomy clips. No evidence of retained radiopaque foreign body. IMPRESSION: No evidence of acute cardiopulmonary abnormality or significant interval change. Electronically signed by: Mookie Heaton DO (02/01/2022 12:00 PM) [id number]
== END ==
LOC: RAD 09:45
PROVIDERS: ATTEND Nurse Practitioner Family
DX: M47.814 Spondylosis without myelopathy or radiculopathy, thoracic region (principal); T17.908A Unspecified foreign body in respiratory tract, part unspecified causing other injury, initial encounter; R06.02 Shortness of breath; Z90.49 Acquired absence of other specified parts of digestive tract
CPT/HCPCS: 71046

== ENCOUNTER → 2022-02-28 | Outpatient (CLI) | payer BC, MEDICARE ==
--- NOTE | 2022-02-28 14:22 | RAD ---
EXAM: XR KNEE 3 VIEWS_RT 02/28/2022 11:34 AM CLINICAL INDICATION: Right knee replacement 1 year ago. Right knee pain. COMPARISON: Right knee radiograph 10/15/2020 TECHNIQUE: AP, oblique, lateral views of the right FINDINGS: There is a revised right total knee prosthesis in expected alignment. No periprosthetic eddie cency or fracture. No significant joint effusion or soft tissue abnormality. IMPRESSION: New revised right total knee prosthesis. No acute abnormality. Electronically signed by: Tiesha Thompson MD (02/28/2022 2:20 PM) [id number]
== END ==
LOC: RAD 11:17
PROVIDERS: ATTEND Orthopaedic Surgery
DX: M25.561 Pain in right knee (principal); Z96.651 Presence of right artificial knee joint
CPT/HCPCS: 73562